=== PATIENT | female | born 1940 | race Caucasian/White ===

== ENCOUNTER 2018-09-15 10:53 | Emergency (ER) | payer MEDICARE, MEDICAID, SELFPAY ==
[2018-09-15 10:54] VITALS: BP 181/99; PULSE 72; RESP 16; TEMP 36.4; O2SAT 100; BMI 29.7
[2018-09-15 11:06] VITALS: O2SAT 100
--- NOTE | 2018-09-15 11:14 | CT_ITS ---
STUDY: CT BRAIN WITHOUT CONTRAST REASON FOR EXAM: Female, 78 years old. Dizziness. RADIATION DOSAGE (If Supplied By Facility): CTDIvol = ( 44.99 ) mGy, DLP = ( 829.85 ) mGycm TECHNIQUE: Transaxial CT imaging of the brain was performed without administration of intravenous contrast material. Individualized dose optimization techniques were used for this CT. COMPARISON: None. FINDINGS: Normal soft tissue structures. Normal calvarium. Normal size ventricles and extra-axial spaces for the patient's age. There are minimal areas of decreased attenuation within the white matter tracts of the supratentorial brain, consistent with microvascular disease changes. Normal basal ganglia and thalami. Normal brainstem. Normal cerebellum. There is no intracranial hemorrhage. There are no findings of an acute ischemic infarction. Normal visualized paranasal sinuses. There is mild decreased aeration of the left mastoid air cells probably chronic. CT/Brain/Head without Contrast IMPRESSION: No active pulmonary disease. Mild left mastoid air cell disease. Electronically Signed: Justin Ferrara MD at 11:51 EST Tel , Service support ,
--- NOTE | 2018-09-15 11:16 | ED.DCSUM_ITS ---
- ER Visit Summary Date of Service: 09/15/18 Chief Complaint: [] Dizziness in protestant today History of Present Illness: The patient is a 78 F [] history of hypertension really no other past history reports she woke feeling fine went to protestant and she sat about to go down to participate in activity she felt the sense of spinning sensation she then sat down this all basically shortly resolved the paramedics were called and her blood pressure was 180/90 he normally runs about 120/80, at no time that she had headache change in vision no difficulty with speaking no cognitive dysfunction, no numbness weakness or paresthesias chest pain abdominal pain she is back to baseline now, she has no history of OH PE DVT stroke or seizure Physical Examination: [] 180/90 afebrile General, no distress resting comfortably HEENT is generally unremarkable The neck is supple no adenopathy Cardiovascular, regular rate and rhythm Lungs, clear bilateral Abdomen, soft nontender Extremities, no clubbing cyanosis or edema Neurologic, awake alert answering questions appropriately moving all 4 extrem ities Test Results: [] Emergency Department Course and Treatment: [] Comfortably in the bed blood pressure as above she has no complaints she did take her medicines today given her complaints all the above screening labs are obtained Patient's blood pressure is 105/80 she has no complaints in fact she was asking the staff to be discharged that she was feeling fine want to go home her labs head CT are all unremarkable I spoke with her and her daughter discussed all the above with the long differential again she does not wish to be admitted she wants to go home she is feeling fine, she assures me that basically she has been doing well at home her blood pressure has not been an issue I have asked her to continue her medications avoid salt baby her body follow-up with her doctors return for change in symptoms and she will do so Treatment Plan: [] Disposition: [] Home stable Impression: [] Transient dizziness resolved hypertension This note was generated with ensembli dictation software. It may contain incorrect words, spelling, and punctuation that were not noted in review of the chart prior to signing ED Disposition - Plan for ED Patient: Chief Complaint: Hypertension Referrals: Liz Hoover MD [Primary Care Provider] -
[2018-09-15 11:27] LABS: Absolute Lymphocyte Count 1.08 X10^3/ul (0.83-4.51); Absolute Neutrophil Count 3.6 X10^3/uL (2.0-7.7); Basophil# 0.01 X10^3/uL; Basophil% 0.2 % (0-1); Eosinophil# 0.07 X10^3/uL; Eosinophils% 1.3 % (0-5); Hematocrit 41.4 % (37-47); Hemoglobin 14.1 g/dl (12.0-15.0); Lymphocyte # 1.08 X10^3/ul (4.0); Lymphocyte % 20.7 % (19-41); Mean Corp Hgb Conc 34.1 g/gl (32-36); Mean Corpuscular Hgb 31.1 pg (27.0-32.0); Mean Corpuscular Volume 91.4 fL (81-99); Mean Platelet Vol. 9.6 fl (6.2-12.0); Monocyte% 9.6 % (0-10); Neutrophil # 3.56 X10^3/uL (2.7-7.7); POSITIVE COUNT NO; POSITIVE DIFFERENTIAL NO; POSITIVE MORPHOLOGY NO; Platelet Count 172 K/mm3 (150-450); RBC Distribution Width SD 42.6 fl (35.1-43.9); Red Blood Count 4.53 M/mm3 (4.2-5.4); White Blood Count 5.2 K/mm3 (4.4-11.0)
--- NOTE | 2018-09-15 11:30 | RAD_ITS ---
STUDY: X-RAY CHEST REASON FOR EXAM: Female, 78 years old. Chest pain. TECHNIQUE: Single AP portable view of the chest. COMPARISON: Prior comparison studies are not available for review at this time. FINDINGS: The lungs are clear and expanded. There is no demonstrated pleural abnormality. The heart is within normal limits in size for there are calcified left hilar nodes. Normal visualized pulmonary arteries. There is atherosclerotic tortuosity of the aortic arch and descending thoracic aorta. The thoracic spine is obscured. Normal visualized ribs, clavicles, and shoulders. There is no demonstrated abnormality of the visualized soft tissue structures of the upper abdomen. RAD/Chest 1 View (Portable) IMPRESSION: No active pulmonary disease. Electronically Signed: Justin Ferrara MD at 12:07 EST Tel , Service support ,
[2018-09-15] MEDS: Clonidine HCl 0.1 MG, Clonidine HCl 0.2 MG 0.3 MG PO (11:45)
[2018-09-15 11:49] LABS: Anion Gap 8 (5-15); BUN 16 mg/dL (7-18); BUN/Creat Ratio 20.8 RATIO (10-20); Calcium,Total 9.5 mg/dL (8.5-10.1); Chloride 106 mmol/L (98-107); Creatinine, Serum 0.77 mg/dL (0.55-1.02); EST Glomerular Filtration Rate 77 mL/min (>60); Est Glom Filt Rate - Afr Amer 93 mL/min (>60); Estimated Creatinine Clearance 42.39 ml/min; Glucose 87 mg/dL (74-106); Potassium 3.9 mmol/L (3.5-5.1); Sodium Level 140 mmol/L (136-145)
[2018-09-15 11:58] LABS: Bacteria 0 SEEN /hpf (None Seen); Mucous, Urine 0 SEEN /hpf (<or=2+); White Blood Cells 0 SEEN /hpf (0-5)
[2018-09-15 11:59] LABS: Color, Urine Yellow (Yellow); Glucose, Dipstick Normal (Normal); Ketone-Dipstick Negative (Negative); Leukocyte Esterase-Dipstick 25 /ul (Negative); Nitrite-Dipstick Negative (Negative); Occult Blood-Urine Negative /ul (Negative); Protein-Dipstick Negative (Negative); Specific Gravity, Urine 1.015 (1.002-1.030); Urine Bilirubin Dipstick Negative (Negative); Urine Clarity Clear (Clear); Urine Urobilinogen Normal (Normal)
[2018-09-15 12:04] LABS: Red Blood Cells-Urine 0-5 SEEN /hpf (0-5); Squamous Epithelial Cells - UA 0-5 SEEN /hpf (5-10)
--- NOTE | 2018-09-15 14:27 | ED.DEP ---
ED Disposition - Plan for ED Patient: Chief Complaint: Hypertension Instructions: ED HTN Established, ED Vertigo Unspecified Referrals: Liz Hoover MD [Primary Care Provider] -
[2018-09-15 14:31] VITALS: BP 102/67; PULSE 51; RESP 16; O2SAT 96
== END 2018-09-15 14:36 | disposition home or self-care (01) ==
PROVIDERS: Emergency Provider Emergency Medicine; Family Provider Internal Medicine; PCP Internal Medicine
DX: R42 Dizziness and giddiness (principal); I10 Essential (primary) hypertension
CPT/HCPCS: 70450; 71045; 80048; 81001; 84484; 85025; 93005; 99285; A4216

== ENCOUNTER 2021-06-01 13:02 | Emergency (ER) | payer MEDICARE, SELFPAY ==
[2021-06-01 13:03] VITALS: BP 150/103; PULSE 90; RESP 18; TEMP 36.6; O2SAT 96; BMI 32.4
--- NOTE | 2021-06-01 13:45 | ED.VIS.FALL ---
HPI HPI - Fall History of Present Illness Chief Complaint: Fall Detail of Chief Complaint: Patient fell yesterday morning Informant: patient and family Occured/Mechanism Occurred: Yesterday Mechanism/Context: Yes same level fall Usually ambulates: Without assistance Pain/Injury Pain Location: back (Bruising and pain over the left lower ribs) Quality of Pain: Dull and Aching Current Severity: Mild Maximum Severity: Moderate Worsened by: Movement Relieved by: Remaining still Associated Symptoms Associated Symptoms: Negative for Parasthesias, Weakness, Loss of function, Inability to ambulate, Loss of consciousness and Amnesia Narrative Narrative: Patient is an elderly woman who presents after mechanical fall. This occurred yesterday morning while getting out of bed. She tripped over a fan striking the chair and then to the ground. She presents because of bruising and pain left flank area. She has not urinated since the incident. She does report pain with movement and breathing. She is not on an anticoagulant. She denies head trauma. She denies loss of conscious. She is not amnestic. She denies neck pain. She denies paresthesia, anesthesia or motor weakness. Tetanus Immunization: 5-10 years Prior similar symptoms: No Recent Illness/Hospitalization: No PFSH PFS Medical History (Updated 06/01/21 @ 16:[address] Christiano Wing MD) Coronary artery disease Dementia Hypertension Home Medications amlodipine 5 mg PO DAILY 08/05/16 [History Last Taken 06/21/17] hydrocodone-acetaminophen 1 tab PO Q6H PRN PRN 3 Days #10 tablet 06/01/21 [Rx Last Taken Unknown] Allergy/AdvReac Type Severity Reaction Status Date / Time No Known Allergies Allergy Verified 06/01/21 13:06 Social History (Updated 06/01/21 @ 13:[address] Christiano Wing MD) household members: none Smoking Status: Former smoker alcohol intake: current alcohol intake frequency: other substance use type: does not use ROS ROS ED Constitutional Constitutional ED: Denies chills, fever(s), subjective or sweats Eyes Eyes: Denies blurry vision, change in vision or diplopia ENT ENT ED: Denies ear pain, rhinorrhea or sore throat Cardiovascular Cardiovascular: Denies chest pain, orthopnea, palpitations or racing heartbeat Respiratory/Chest Respiratory/Chest: Denies cough, dyspnea, dyspnea on exertion, orthopnea or sputum Gastrointestinal Gastrointestinal: Denies abdominal pain, diarrhea, nausea or vomiting Genitourinary Genitourinary ED: Denies dysuria, hematuria or urinary frequency Musculoskeletal Musculoskeletal: Reports back pain; Denies arthralgias, myalgias or neck pain Integumentary Reports other Details: Bruising noted left flank area ; Denies rash Neurologic Neurologic: Denies headache(s) or weakness Hematologic/Lymphatic Hematologic/Lymphatic: Denies easy bleeding or easy bruising EXAM Physical Exam Const Vital Signs: 06/01/21 13:03 06/01/21 14:08 Temperature 97.9 F Temperature Source Temporal Pulse Rate 90 Respiratory Rate 18 Respiratory Effort Normal Blood Pressure 150/103 H Blood Pressure Mean 118 Pulse Ox 96 Oxygen Delivery Method Room Air Positive well nourished and well developed General Appearance ED: well developed and NAD HEENT Reports normocephalic and TM's clear HEENT Narrative: There is no septal deviation hematoma. atraumatic Tympanic Membrane ED: Yes TM's clear Eyes PERRL and EOMs intact bilaterally Eyes Narrative: There is no subconjunctival hemorrhage. General Eye ED: Negative for pale conjunctiva or scleral icterus Neck full ROM, no lymphadenopathy and supple General: Negative for tenderness Chest Wall inspection of chest normal Resp normal respiratory effort and clear to auscultation bilaterally Auscultation: diminished lung sounds Cardio regular rate, regular rhythm, S1 normal heart sound, S2 normal heart sound and no murmurs GI non-tender, non-distended and no masses Auscultation: normoactive bowel sounds Palpation: soft Back/Spine Negative for no CVA tenderness General Back: CVA tenderness left Cervical Spine: Negative for cervical spine tenderness Thoracic Spine / Upper Back: Negative for thoracic spinal tenderness Lumbar Spine / Lower Back: Negative for lumbar spinal tenderness Extremity normal to inspection and full ROM General Extremety ED: Yes normal exam except as noted; Negative for cyanosis General Extremity: normal exam except as noted; Negative for cyanosis Neuro oriented x3 and CN's II-XII intact bilaterally David Coma Scale: document GCS findings Spontaneous Obeys Commands Oriented 15 Sensorium / Orientation: alert Motor Exam: strength 5/5 throughout Psych mental status grossly normal and thought process normal Skin Skin Narrative: Bruising as previously described Lesions: no lesions Rashes: no rashes MDM MDM MDM Narrative Medical decision making narrative: X-ray was obtained to evaluate for pneumothorax and hemothorax. UA to assess for hematuria which would raise concern for renal injury. CBC to rule out anemia. She was medicated with Zofran and morphine for her discomfort Lab Data Attestation: I reviewed the patient's lab results. Lab results narrative: Patient did not give urine specimen. Patient did go. Urine was not bloody or dark in appearance; therefore, plan is to discharge to home. Labs: Laboratory Results - last 24 hr 06/01/21 14:00 WBC 5.2 RBC 4.48 Hgb 13.8 Hct 41.2 MCV 92.0 MCH 30.8 MCHC 33.5 RDW Std Deviation 42.3 RDW Coeff of Niurka 12.5 Plt Count 166 MPV 9.6 Radiography Diagnostic Testing: Radiology Impression Ribs w/Chest X-Ray 06/01/21 14:25 IMPRESSION: RIBS: Normal x-ray examination of the ribs. CHEST: Normal x-ray examination of the chest. Electronically Signed: Rigoberto June MD at 15:06 EDT , Service support , 4 view left rib detail reveals no evidence of pneumothorax, hemothorax or fractured ribs. Cardiac silhouette size normal. Mediastinum is unremarkable. Discharge Plan Triage Chief Complaint: Fall ED Provider: Christiano Wing Dx/Rx/DC Orders Clinical Impression: Bruised ribs, Fall with injury Instructions: ED Contusion, Rib Prescriptions: New hydrocodone-acetaminophen [hydrocodone-acetaminophen] 1 TABLET tablet 1 tab PO Q6H PRN PRN (Reason: Pain) 3 Days Qty: 10 RF: 0 No Action amlodipine 2.5 MG tablet 5 mg PO DAILY RF: 0 Primary Care Provider: Liz Hoover Referrals: Liz Hoover MD [Primary Care Provider] - 1 Week if not improving Disposition Disposition: Home, Self Care
[2021-06-01] MEDS: Morphine 4 MG/ML Syringe IV (13:58)
[2021-06-01] MEDS: Ondansetron 4 MG/2 ML Vial IV (13:58)
[2021-06-01 14:12] LABS: Hematocrit 41.2 % (37-47); Hemoglobin 13.8 g/dL (12.0-15.0); Mean Corp Hgb Conc 33.5 g/dL (32-36); Mean Corpuscular Hgb 30.8 pg (27.0-32.0); Mean Platelet Vol. 9.6 fl (6.2-12.0); Platelet Count 166 K/mm3 (150-450); RBC Distribution Width CV 12.5 % (11.6-14.6); RBC Distribution Width SD 42.3 fl (35.1-43.9); Red Blood Count 4.48 M/mm3 (4.2-5.4); White Blood Count 5.2 K/mm3 (4.4-11.0)
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
[2021-06-01 17:21] VITALS: BP 140/78; PULSE 78; RESP 18; O2SAT 96
== END 2021-06-01 17:23 | disposition home or self-care (01) ==
PROVIDERS: Emergency Provider Emergency Medicine; PCP Internal Medicine
DX: S20.219A Contusion of unspecified front wall of thorax, initial encounter (principal); W18.09XA Striking against other object with subsequent fall, initial encounter; Y93.9 Activity, unspecified; Y92.003 Bedroom of unspecified non-institutional (private) residence as the place of occurrence of the external cause; Y99.9 Unspecified external cause status; I25.10 Atherosclerotic heart disease of native coronary artery without angina pectoris; I10 Essential (primary) hypertension; F03.90 Unspecified dementia, unspecified severity, without behavioral disturbance, psychotic disturbance, mood disturbance, and anxiety; Z87.891 Personal history of nicotine dependence
CPT/HCPCS: 71101; 85027; 96374; 96375; 99284; J2405

== ENCOUNTER 2022-08-25 16:00 | Emergency (ER) | payer MEDICARE, MEDICAID, SELFPAY ==
[2022-08-25] VITALS (7 sets, daily range): BP systolic 118–139; BP diastolic 81–112; PULSE 62–86; RESP 16; TEMP 36–36.3; O2SAT 96–100; BMI 25.7
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
--- NOTE | 2022-08-25 16:34 | CT_ITS ---
STUDY: CT BRAIN WITHOUT CONTRAST REASON FOR EXAM: Female, 82 years old. Change in mental status. RADIATION DOSAGE (If Supplied By Facility): CTDIvol = ( 44.99 ) mGy, DLP = ( 829.85 ) mGycm TECHNIQUE: Transaxial CT imaging of the brain was performed without administration of intravenous contrast material. Individualized dose optimization techniques were used for this CT. COMPARISON: June 16, 2018. FINDINGS: Normal soft tissue structures. Normal calvarium. There is mild cerebral atrophy with widening of the extra-axial spaces and ventricular dilatation. There are areas of decreased attenuation within the white matter tracts of the supratentorial brain, consistent with microvascular disease changes. Normal basal ganglia and thalami. Normal brainstem. Normal cerebellum. There is no intracranial hemorrhage. There are no findings of an acute ischemic infarction. Normal visualized paranasal sinuses. Chronic fluid density in the inferior left mastoid sinus. CT/Brain/Head without Contrast IMPRESSION: Chronic involutional changes without evidence of acute intracranial or calvarial abnormality. There is no major interval change. Electronically Signed: Ponce Jackson DO at 17:48 EST Reading Location ID and State: [address] [place] [address] Tel [phone], Service support ,
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
[2022-08-25 17:00] LABS: Absolute Lymphocyte Count 0.81 X10^3/uL (0.83-4.51); Absolute Neutrophil Count 4.6 X10^3/uL (2.0-7.7); Basophil# 0.01 X10^3/uL; Basophil% 0.2 % (0-1); Eosinophil# 0.07 X10^3/uL; Eosinophils% 1.1 % (0-5); Hemoglobin 12.3 g/dL (12.0-15.0); Lymphocyte # 0.81 X10^3/ul (0.83-4.51); Lymphocyte % 13.3 % (19-41); Mean Corp Hgb Conc 33.2 g/dL (32-36); Mean Corpuscular Hgb 30.9 pg (27.0-32.0); Mean Platelet Vol. 10.3 fl (6.2-12.0); Monocyte# 0.59 X10^3/uL; Monocyte% 9.7 % (0-10); NRBC Flagged by Analyzer 0 % (0-5); Neutrophil # 4.61 X10^3/uL (2.7-7.7); Neutrophil % 75.4 % (47-70); Platelet Count 175 K/mm3 (150-450); RBC Distribution Width CV 12.8 % (11.6-14.6); Red Blood Count 3.98 M/mm3 (4.2-5.4); White Blood Count 6.1 K/mm3 (4.4-11.0)
[2022-08-25 17:17] LABS: Anion Gap 3 (5-15); BUN 18 mg/dL (7-18); BUN/Creat Ratio 20.9 RATIO (10-20); Calcium,Total 9.7 mg/dL (8.5-10.1); Chloride 110 mmol/L (98-107); Creatinine, Serum 0.86 mg/dL (0.55-1.02); EST Glomerular Filtration Rate 67 mL/min (>60); Est Glom Filt Rate - Afr Amer 81 mL/min (>60); Glucose 92 mg/dL (74-106); Potassium 4.1 mmol/L (3.5-5.1); Sodium Level 142 mmol/L (136-145)
[2022-08-25 17:26] LABS: Alcohol, Blood (Medical)-Serum < 3.0 mg/dL
[2022-08-25] MEDS: Ziprasidone IM 20 MG/ML VIAL 10 MG IM (17:57)
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
[2022-08-25 19:29] LABS: Amphetamine Urine VISTA NEGATIVE (<1000 ng/mL); Barbiturate Urine VISTA NEGATIVE (< 200 ng/mL); Benzodiazepine Urine VISTA NEGATIVE (< 200 ng/mL); Cocaine Urine VISTA NEGATIVE (< 300 ng/mL); Ecstacy Urine VISTA NEGATIVE (< 500 ng/mL); Methadone Urine VISTA NEGATIVE (< 300 ng/mL); PCP Urine VISTA NEGATIVE (< 25 ng/mL); THC Urine VISTA NEGATIVE (< 50 ng/mL); Vista UDS pH Range 6
[2022-08-25] MEDS: LORazepam 2 MG/ML Syringe 1 MG IM (20:06)
--- NOTE | 2022-08-25 20:36 | CM.ED ---
Addendum entered by Whitney Reeves 08/25/22 21:51: EKG faxed to [facility]. SW updated son that patient is going to [facility]. RN was asked to call patient's son when patient leaves per son's request. Plan: [facility] Whitney REYNOSOHUMBERTO Original Note: EREN JASON called [facility] to inquire on the referral. Staff at [facility] inquired as to how patient was doing currently and how long patient was off soft restraints. Per charge auditor oleg patient was off soft restraints for 2 hours. [facility] also inquired if patient could return to SNF. EREN called nurse Yulissa at [facility] and she voiced that patient could return after psychiatric treatment. EREN called Aida at [facility]. They are reviewing the referral currently and will call this check writer salesperson back. Aida called this check writer salesperson back and they will fax the SNF agreement to this check writer salesperson and this check writer salesperson will fax it to A[facility]. EREN called [facility] at [facility] and spoke to Janee. She spoke to LISA Hughes who said that patient would be able to return after receiving treatment. The direct line to [facility] is [phone] and the fax number to [facility] is [phone]. EREN called [facility] and advised that patient could return to [facility] at discharge from [facility]. EREN requested that the social media campaign manager call [facility] to get verbal that patient could return to [facility] at discharge. REEN called [facility] and was advised that patient can return to [facility] at discharge. [place] staff said that they want a letter stating patient can return to [facility]. EREN received call from [facility]. They can accept patient. Accepting provider is Fam. Going to [facility] . RN to RN is [phone]. Patient needs to be out of soft restraints for 4 hours prior to leaving [place]. Patient is going to room 309B. EREN called [facility] and advised patient has secured placement. EREN faxed pink slip and covid form to [facility]. Plan: [facility] Whitney REYNOSOHUMBERTO
--- NOTE | 2022-08-25 21:37 | EKG12_ITS ---
Test Reason : [facility] Blood Pressure : / mmHG Vent. Rate : 070 BPM Atrial Rate : 070 BPM P-R Int : 184 ms QRS Dur : 128 ms QT Int : 412 ms P-R-T Axes : 077 083 043 degrees QTc Int : 444 ms Normal sinus rhythm Right bundle branch block Abnormal ECG Confirmed by UZMA ZAPATA, NADEGE ([id number]), editorial assistant NARCISO CASTREJON ([id number]) on 08/29/2022 12:12:16 PM Referred By: TONI Confirmed By:NADEGE GUSMAN MD
--- NOTE | 2022-08-25 23:57 | ED.RN ---
ATTEMPTED TO CALL REPORT TO [facility]. THEY STATED THEY WERE UNABLE TO TAKE THE REPORT BUT WOULD CALL BACK.
--- NOTE | 2022-08-26 00:09 | NURSING ---
Addendum entered by Humaira Batista 08/26/22 02:44: PHYSICIANS CALLED AROUND [id number] AND GAVE A NEW ETA OF APPROX AN HR. Original Note: ACCEPTED AT [facility] AND GIVEN BED ASSIGNMENT. TRANSPORT WAS CALLED AND THEIR ETA IS 9AM 08/26/22.
[2022-08-26 01:31] VITALS: O2SAT 96
[2022-08-26] MEDS: Ziprasidone IM 20 MG/ML VIAL IM (01:52)
--- NOTE | 2022-08-26 02:55 | NURSING ---
Called and nurse at [facility] is aware we medicated again about an hour ago and new calose kimmy is now 0330 here and there around 0500. She just wants called when patient leaves the facility.
[2022-08-26 02:57] VITALS: O2SAT 97
[2022-08-26 03:55] VITALS: O2SAT 97
== END 2022-08-26 03:59 ==
PROVIDERS: Emergency Provider Emergency Medicine; PCP Internal Medicine; Visit Provider Emergency Medicine
DX: F03.918 Unspecified dementia, unspecified severity, with other behavioral disturbance (principal); I25.10 Atherosclerotic heart disease of native coronary artery without angina pectoris; I10 Essential (primary) hypertension; E78.5 Hyperlipidemia, unspecified; Z20.822 Contact with and (suspected) exposure to COVID-19; Z87.891 Personal history of nicotine dependence; R45.6 Violent behavior; Z79.899 Other long term (current) drug therapy
CPT/HCPCS: 70450; 80048; 80307; 82077; 85025; 87811; 93005; 96372; 99285; A4216; J3486

== ENCOUNTER → 2022-09-14 | Outpatient (REF) | payer MEDICARE, MEDICAID, SELFPAY ==
[2022-09-14 09:06] LABS: Absolute Lymphocyte Count 0.72 X10^3/uL (0.83-4.51); Absolute Neutrophil Count 5.5 X10^3/uL (2.0-7.7); Basophil# 0.01 X10^3/uL; Basophil% 0.1 % (0-1); Eosinophil# 0.09 X10^3/uL; Eosinophils% 1.3 % (0-5); Hematocrit 33.9 % (37-47); Hemoglobin 11.4 g/dL (12.0-15.0); Lymphocyte # 0.72 X10^3/ul (0.83-4.51); Lymphocyte % 10.3 % (19-41); Mean Corp Hgb Conc 33.6 g/dL (32-36); Mean Corpuscular Hgb 31.4 pg (27.0-32.0); Mean Corpuscular Volume 93.4 fL (81-99); Mean Platelet Vol. 10.5 fl (6.2-12.0); Monocyte# 0.65 X10^3/uL; Monocyte% 9.3 % (0-10); NRBC Flagged by Analyzer 0 % (0-5); Neutrophil % 78.7 % (47-70); Platelet Count 179 K/mm3 (150-450); RBC Distribution Width SD 44.6 fl (35.1-43.9); Red Blood Count 3.63 M/mm3 (4.2-5.4)
[2022-09-14 09:18] LABS: ALB/GLOB Ratio 0.8 RATIO (0.9-2.4); AST(SGOT) 54 U/L (15-37); Alanine Aminotransfer ALT/SGPT 62 U/L (13-56); Albumin, Serum 2.7 g/dL (3.2-5.0); Alkaline Phosphatase 65 U/L (45-117); Anion Gap 3 (5-15); BUN 12 mg/dL (7-18); Calcium,Total 8.8 mg/dL (8.5-10.1); Chloride 105 mmol/L (98-107); Creatinine, Serum 0.48 mg/dL (0.55-1.02); EST Glomerular Filtration Rate 132 mL/min (>60); Est Glom Filt Rate - Afr Amer 159 mL/min (>60); Globulin 3.2 g/dL (2.2-4.2); Glucose 93 mg/dL (74-106); Potassium 3.9 mmol/L (3.5-5.1); Protein, Total 5.9 g/dL (6.4-8.2); Sodium Level 137 mmol/L (136-145)
== END ==
LOC: OLS.WHLCAR 07:30
PROVIDERS: PCP Internal Medicine; Visit Provider Internal Medicine
DX: F03.911 Unspecified dementia, unspecified severity, with agitation (principal); I10 Essential (primary) hypertension; R41.89 Other symptoms and signs involving cognitive functions and awareness; M62.81 Muscle weakness (generalized); R26.2 Difficulty in walking, not elsewhere classified; R27.8 Other lack of coordination
CPT/HCPCS: 36415; 80053; 85025

== ENCOUNTER → 2022-10-06 | Outpatient (REF) | payer MEDICARE, MEDICAID, SELFPAY ==
[2022-10-06 09:12] LABS: Absolute Neutrophil Count 4.3 X10^3/uL (2.0-7.7); Basophil# 0.02 X10^3/uL; Basophil% 0.3 % (0-1); Eosinophil# 0.12 X10^3/uL; Hematocrit 35.3 % (37-47); Hemoglobin 11.2 g/dL (12.0-15.0); Lymphocyte % 14.9 % (19-41); Mean Corp Hgb Conc 31.7 g/dL (32-36); Mean Corpuscular Hgb 30.4 pg (27.0-32.0); Mean Corpuscular Volume 95.9 fL (81-99); Mean Platelet Vol. 10.5 fl (6.2-12.0); Monocyte# 0.66 X10^3/uL; Monocyte% 10.9 % (0-10); NRBC Flagged by Analyzer 0 % (0-5); Neutrophil # 4.33 X10^3/uL (2.7-7.7); Neutrophil % 71.6 % (47-70); Platelet Count 225 K/mm3 (150-450); RBC Distribution Width CV 14.4 % (11.6-14.6); RBC Distribution Width SD 50.4 fl (35.1-43.9); Red Blood Count 3.68 M/mm3 (4.2-5.4); White Blood Count 6.1 K/mm3 (4.4-11.0)
[2022-10-06 09:32] LABS: ALB/GLOB Ratio 0.9 RATIO (0.9-2.4); AST(SGOT) 33 U/L (15-37); Alanine Aminotransfer ALT/SGPT 41 U/L (13-56); Albumin, Serum 3.2 g/dL (3.2-5.0); Alkaline Phosphatase 84 U/L (45-117); Anion Gap 7 (5-15); BUN 22 mg/dL (7-18); BUN/Creat Ratio 29.1 RATIO (10-20); Calcium,Total 9.2 mg/dL (8.5-10.1); Chloride 108 mmol/L (98-107); Creatinine, Serum 0.76 mg/dL (0.55-1.02); EST Glomerular Filtration Rate 78 mL/min (>60); Est Glom Filt Rate - Afr Amer 95 mL/min (>60); Globulin 3.7 g/dL (2.2-4.2); Glucose 95 mg/dL (74-106); Potassium 4.4 mmol/L (3.5-5.1); Protein, Total 6.9 g/dL (6.4-8.2); Sodium Level 141 mmol/L (136-145); Thyroid Stim Hormone (TSH) 1.58 uIU/mL (0.358-3.74)
== END ==
LOC: OLS.WHLCAR 05:00
PROVIDERS: PCP Internal Medicine; Visit Provider Internal Medicine
DX: G93.32 Myalgic encephalomyelitis/chronic fatigue syndrome (principal); I10 Essential (primary) hypertension; R41.89 Other symptoms and signs involving cognitive functions and awareness; M62.81 Muscle weakness (generalized); R26.2 Difficulty in walking, not elsewhere classified; R27.8 Other lack of coordination
CPT/HCPCS: 36415; 80053; 84443; 85025

== ENCOUNTER → 2022-10-20 | Outpatient (REF) | payer MEDICARE, MEDICAID, SELFPAY ==
[2022-10-20 09:05] LABS: Absolute Lymphocyte Count 1.43 X10^3/uL (0.83-4.51); Absolute Neutrophil Count 4.8 X10^3/uL (2.0-7.7); Basophil# 0.01 X10^3/uL; Basophil% 0.1 % (0-1); Eosinophil# 0.16 X10^3/uL; Eosinophils% 2.2 % (0-5); Hematocrit 40.1 % (37-47); Hemoglobin 12.6 g/dL (12.0-15.0); Lymphocyte # 1.43 X10^3/ul (0.83-4.51); Lymphocyte % 20.1 % (19-41); Mean Corp Hgb Conc 31.4 g/dL (32-36); Mean Corpuscular Hgb 30.2 pg (27.0-32.0); Mean Corpuscular Volume 96.2 fL (81-99); Mean Platelet Vol. 10.1 fl (6.2-12.0); Monocyte# 0.69 X10^3/uL; Monocyte% 9.7 % (0-10); NRBC Flagged by Analyzer 0 % (0-5); Neutrophil % 67.5 % (47-70); Platelet Count 295 K/mm3 (150-450); RBC Distribution Width CV 14.1 % (11.6-14.6); RBC Distribution Width SD 50.3 fl (35.1-43.9); Red Blood Count 4.17 M/mm3 (4.2-5.4); White Blood Count 7.1 K/mm3 (4.4-11.0)
[2022-10-20 09:24] LABS: Anion Gap 7 (5-15); BUN 16 mg/dL (7-18); BUN/Creat Ratio 22.3 RATIO (10-20); Calcium,Total 9.7 mg/dL (8.5-10.1); Chloride 107 mmol/L (98-107); Creatinine, Serum 0.72 mg/dL (0.55-1.02); EST Glomerular Filtration Rate 83 mL/min (>60); Est Glom Filt Rate - Afr Amer 100 mL/min (>60); Glucose 93 mg/dL (74-106); Potassium 4.4 mmol/L (3.5-5.1); Sodium Level 141 mmol/L (136-145)
== END ==
LOC: OLS.WHLCAR 06:50
PROVIDERS: PCP Internal Medicine; Visit Provider Internal Medicine
DX: G93.32 Myalgic encephalomyelitis/chronic fatigue syndrome (principal); I10 Essential (primary) hypertension; R41.89 Other symptoms and signs involving cognitive functions and awareness; M62.81 Muscle weakness (generalized); R26.2 Difficulty in walking, not elsewhere classified; R27.8 Other lack of coordination
CPT/HCPCS: 36415; 80048; 85025

== ENCOUNTER → 2022-11-29 | Outpatient (REF) | payer MEDICARE, MEDICAID, SELFPAY ==
[2022-11-29 09:26] LABS: Absolute Lymphocyte Count 1.03 X10^3/uL (0.83-4.51); Absolute Neutrophil Count 2.9 X10^3/uL (2.0-7.7); Basophil# 0.01 X10^3/uL; Basophil% 0.2 % (0-1); Eosinophils% 4.3 % (0-5); Hematocrit 34.5 % (37-47); Hemoglobin 10.6 g/dL (12.0-15.0); Lymphocyte # 1.03 X10^3/ul (0.83-4.51); Mean Corp Hgb Conc 30.7 g/dL (32-36); Mean Corpuscular Hgb 30.1 pg (27.0-32.0); Mean Platelet Vol. 9.7 fl (6.2-12.0); Monocyte# 0.52 X10^3/uL; Monocyte% 11.1 % (0-10); NRBC Flagged by Analyzer 0 % (0-5); Neutrophil # 2.91 X10^3/uL (2.7-7.7); Neutrophil % 62.2 % (47-70); Platelet Count 214 K/mm3 (150-450); RBC Distribution Width CV 14.2 % (11.6-14.6); RBC Distribution Width SD 50.7 fl (35.1-43.9); Red Blood Count 3.52 M/mm3 (4.2-5.4); White Blood Count 4.7 K/mm3 (4.4-11.0)
[2022-11-29 10:13] LABS: ALB/GLOB Ratio 0.8 RATIO (0.9-2.4); AST(SGOT) 34 U/L (15-37); Alanine Aminotransfer ALT/SGPT 31 U/L (13-56); Albumin, Serum 2.9 g/dL (3.2-5.0); Alkaline Phosphatase 81 U/L (45-117); Anion Gap 9 (5-15); BUN 19 mg/dL (7-18); BUN/Creat Ratio 26.9 RATIO (10-20); Calcium,Total 9.4 mg/dL (8.5-10.1); Chloride 110 mmol/L (98-107); Creatinine, Serum 0.71 mg/dL (0.55-1.02); EST Glomerular Filtration Rate 84 mL/min (>60); Est Glom Filt Rate - Afr Amer 102 mL/min (>60); Globulin 3.7 g/dL (2.2-4.2); Glucose 92 mg/dL (74-106); Potassium 4.2 mmol/L (3.5-5.1); Protein, Total 6.6 g/dL (6.4-8.2); Sodium Level 142 mmol/L (136-145)
== END ==
LOC: OLS.WHLCAR 05:40
PROVIDERS: PCP Internal Medicine; Visit Provider Internal Medicine
DX: R48.8 Other symbolic dysfunctions (principal); Z79.899 Other long term (current) drug therapy
CPT/HCPCS: 36415; 80053; 85025

== ENCOUNTER → 2022-12-12 | Outpatient (REF) | payer MEDICARE, MEDICAID, SELFPAY ==
[2022-12-12 08:52] LABS: Absolute Lymphocyte Count 1.86 X10^3/uL (0.83-4.51); Absolute Neutrophil Count 4.1 X10^3/uL (2.0-7.7); Basophil# 0.01 X10^3/uL; Basophil% 0.1 % (0-1); Eosinophil# 0.25 X10^3/uL; Eosinophils% 3.6 % (0-5); Hematocrit 40.2 % (37-47); Hemoglobin 12.3 g/dL (12.0-15.0); Lymphocyte # 1.86 X10^3/ul (0.83-4.51); Lymphocyte % 26.5 % (19-41); Mean Corp Hgb Conc 30.6 g/dL (32-36); Mean Corpuscular Hgb 29.9 pg (27.0-32.0); Mean Corpuscular Volume 97.6 fL (81-99); Monocyte# 0.81 X10^3/uL; Monocyte% 11.6 % (0-10); NRBC Flagged by Analyzer 0 % (0-5); Neutrophil # 4.07 X10^3/uL (2.7-7.7); Neutrophil % 58.1 % (47-70); Platelet Count 263 K/mm3 (150-450); RBC Distribution Width CV 13.8 % (11.6-14.6); RBC Distribution Width SD 50.1 fl (35.1-43.9); Red Blood Count 4.12 M/mm3 (4.2-5.4)
[2022-12-12 09:02] LABS: Anion Gap 6 (5-15); BUN 24 mg/dL (7-18); BUN/Creat Ratio 35.6 RATIO (10-20); Calcium,Total 9.8 mg/dL (8.5-10.1); Chloride 105 mmol/L (98-107); Creatinine, Serum 0.68 mg/dL (0.55-1.02); EST Glomerular Filtration Rate 89 mL/min (>60); Est Glom Filt Rate - Afr Amer 108 mL/min (>60); Glucose 88 mg/dL (74-106); Potassium 4.4 mmol/L (3.5-5.1); Sodium Level 140 mmol/L (136-145)
== END ==
LOC: OLS.WHLCAR 05:00
PROVIDERS: PCP Internal Medicine; Visit Provider Internal Medicine
DX: G93.32 Myalgic encephalomyelitis/chronic fatigue syndrome (principal)
CPT/HCPCS: 36415; 80048; 85025

== ENCOUNTER → 2023-01-29 | Outpatient (REF) | payer MEDICARE, MEDICAID, SELFPAY ==
[2023-01-29 10:14] LABS: Valproic Acid (Depakene) Level 34 ug/mL (50-100)
== END ==
LOC: OLS.WHLCAR 04:00
PROVIDERS: PCP Internal Medicine; Referring Provider Internal Medicine; Visit Provider Internal Medicine
DX: F03.92 Unspecified dementia, unspecified severity, with psychotic disturbance (principal); G30.9 Alzheimer's disease, unspecified; F33.9 Major depressive disorder, recurrent, unspecified; F41.9 Anxiety disorder, unspecified; Z79.899 Other long term (current) drug therapy
CPT/HCPCS: 36415; 80164

== ENCOUNTER → 2023-02-06 | Outpatient (REF) | payer MEDICARE, MEDICAID, SELFPAY ==
[2023-02-06 07:04] LABS: Absolute Lymphocyte Count 0.95 X10^3/uL (0.83-4.51); Absolute Neutrophil Count 4.1 X10^3/uL (2.0-7.7); Basophil# 0.02 X10^3/uL; Basophil% 0.3 % (0-1); Eosinophil# 0.12 X10^3/uL; Hematocrit 39.7 % (37-47); Hemoglobin 12.1 g/dL (12.0-15.0); Lymphocyte # 0.95 X10^3/ul (0.83-4.51); Lymphocyte % 15.9 % (19-41); Mean Corp Hgb Conc 30.5 g/dL (32-36); Mean Corpuscular Hgb 29.2 pg (27.0-32.0); Mean Corpuscular Volume 95.7 fL (81-99); Monocyte# 0.82 X10^3/uL; Monocyte% 13.7 % (0-10); NRBC Flagged by Analyzer 0 % (0-5); Neutrophil # 4.05 X10^3/uL (2.7-7.7); Neutrophil % 67.8 % (47-70); Platelet Count 200 K/mm3 (150-450); RBC Distribution Width CV 14.2 % (11.6-14.6); RBC Distribution Width SD 49.8 fl (35.1-43.9); Red Blood Count 4.15 M/mm3 (4.2-5.4)
[2023-02-06 07:37] LABS: Anion Gap 6 (5-15); BUN 24 mg/dL (7-18); BUN/Creat Ratio 35.5 RATIO (10-20); Calcium,Total 9.2 mg/dL (8.5-10.1); Chloride 106 mmol/L (98-107); Creatinine, Serum 0.68 mg/dL (0.55-1.02); EST Glomerular Filtration Rate 89 mL/min (>60); Est Glom Filt Rate - Afr Amer 107 mL/min (>60); Glucose 91 mg/dL (74-106); Potassium 4.1 mmol/L (3.5-5.1); Sodium Level 140 mmol/L (136-145)
== END ==
LOC: OLS.WHLCAR 05:00
PROVIDERS: PCP Internal Medicine; Visit Provider Internal Medicine
DX: G93.32 Myalgic encephalomyelitis/chronic fatigue syndrome (principal)
CPT/HCPCS: 36415; 80048; 85025

== ENCOUNTER 2023-03-04 07:54 | Emergency (ER) | payer MEDICARE, MEDICAID, SELFPAY ==
[2023-03-04 07:55] VITALS: BP 119/80; PULSE 89; RESP 18; TEMP 37.4; O2SAT 91; BMI 30.4
--- NOTE | 2023-03-04 08:34 | EKG12_ITS ---
Test Reason : [facility] Blood Pressure : / mmHG Vent. Rate : 068 BPM Atrial Rate : 068 BPM P-R Int : 176 ms QRS Dur : 124 ms QT Int : 412 ms P-R-T Axes : 074 082 041 degrees QTc Int : 438 ms Normal sinus rhythm Right bundle branch block Abnormal ECG Confirmed by DANNI ZAPATA, FATOU ([id number]), development editor NARCISO CASTREJON ([id number]) on 03/06/2023 7:47:12 AM Referred By: Confirmed By:LISA RAZO MD
--- NOTE | 2023-03-04 08:35 | ED.VIS.LOWEX ---
HPI History of Present Illness HPI Narrative: 82-year-old female from local [facility] with history of dementia and hypertension sent in for bilateral lower extremity swelling and redness on the left leg. Patient herself is unable to give any history due to her dementia. She is awake her eyes are open but she really does not answer questions. Repeat exam at 11:25 AM unchanged. Patient is resting comfortably in bed. No changes the left leg is still erythematous consistent with cellulitis. I spoke to the [facility] facility. She had cellulitis previously. They normally treat her with oral antibiotics at their facility. I will give her a dose of IV Unasyn here. She will be sent back to the facility with a prescription for Keflex 500 4 times daily. They assured me they can get that filled. She will be followed up by their medical staff physician in the next day or so. And if the swelling is not improving they can obtain a noninvasive study of the lower extremity to rule out DVT even though clinically this time I think it is a cellulitis. Chief Complaint: Edema Informant: patient Occured/Mechanism Mechanism/Context: No injury and No blunt trauma Onset/Context/Timing Onset: Days Context: Gradual Onset Timing: Continuous Current Severity: Mild Maximum Severity: Mild Narrative Narrative: 82-year-old demented patient from a local [facility] facility sent in for bilateral lower extremity swelling and left leg redness. Patient is unable to give any history due to her dementia. Prior similar symptoms: No Recent Illness/Hospitalization: No PFSH PFS Medical History Coronary artery disease Dementia Depression HLD (hyperlipidemia) Hypertension Home Medications amlodipine 10 mg tablet 10 mg PO DAILY 08/25/22 [History Last Taken Unknown] multivitamin 1 tab PO DAILY 08/25/22 [History Last Taken Unknown] lorazepam 0.5 mg tablet 0.5 mg PO Q6H PRN anxiety #28 tabs 09/08/22 [Rx Last Taken Unknown] cephalexin 500 mg capsule 500 mg PO Q6 10 days #40 CAPSULES 03/04/23 [Rx Last Taken Unknown] Allergy/AdvReac Type Severity Reaction Status Date / Time No Known Allergies Allergy Verified 08/25/22 16:01 Social History household members: none Smoking Status: Former smoker alcohol intake: current alcohol intake frequency: other substance use type: does not use ROS ROS ED ROS Narrative Unable to obtain due to the patient's mental status. Review of Systems ROS Unobtainable: due to mental status EXAM Physical Exam Narrative Exam Narrative: 82-year-old female initial temperature is nine 9.3. Pulse ox 91% on room air borderline hypoxia. Initial blood pressure 119/80 when I entered the room she is 91/60 that will be rechecked. H EENT exam unremarkable atraumatic. Pupils round react to light. Moist membranes. Neck nontender JVD. Lungs clear to auscultation bilaterally. Heart regular rhythm rate about 94-6 systolic ejection murmur. Abdomen soft nontender normal bowel sounds no peritoneal signs. Nontender nondistended. Moves all 4 extremities. 1+ pitting edema both lower extremities little significant redness on the left lower extremity. Not specifically tender or warm to the touch. This may be secondary cellulitis it could also be chronic venous stasis changes. But is a significant difference between the left leg redness and the coloration of the right. Neurologically she is awake. Her eyes are open. She follows commands. She is demented and is confused. Const Vital Signs: 03/04/23 07:55 03/04/23 08:42 03/04/23 08:42 Temperature 99.3 F H Temperature Source Temporal Pulse Rate 89 Respiratory Rate 18 Blood Pressure 119/80 133/62 H Blood Pressure Mean 93 85 Pulse Ox 91 Oxygen Delivery Method Room Air Room Air 03/04/23 10:53 Temperature Temperature Source Pulse Rate 65 Respiratory Rate 15 Blood Pressure 103/73 Blood Pressure Mean 83 Pulse Ox Oxygen Delivery Method Positive well nourished and well developed; Negative for cachectic, contractures or unkempt General Appearance ED: well developed and NAD; Negative for unkempt, cachectic or contractures Nutritional Appearance: Negative for cachectic HEENT Reports moist mucous membranes normocephalic and atraumatic; Negative for trauma or tenderness Eyes PERRL General Eye ED: Negative for other Neck full ROM and supple Thyroid: Negative for tender Lymph Lymphatic: Negative for other Chest Wall inspection of chest normal and palpation of chest normal Resp normal respiratory effort, no retractions and clear to auscultation bilaterally Effort and Inspection: Negative for pain with movement Auscultation: Negative for rales, rhonchi or wheezes Cardio regular rate, regular rhythm, S1 normal heart sound and S2 normal heart sound; Negative for no murmurs Cardio Narrative: 4/6 systolic ejection murmur. GI non-tender and no masses Inspection: Negative for abdominal distention Auscultation: normoactive bowel sounds Palpation: soft; Negative for tender or guarding Bladder / Kidney Exam: No other Back/Spine no CVA tenderness General Back: Negative for CVA tenderness Cervical Spine: Negative for cervical spine tenderness Thoracic Spine / Upper Back: Negative for thoracic spinal tenderness Extremity Negative for normal to inspection Extremity Narrative: Bilateral lower extremity 1+ pitting edema. Redness left leg. Not particularly warm or tender. Either edema with venous stasis changes or cellulitis. General Extremety ED: Yes edema General Extremity: edema Neuro No oriented x3 and moves all extremities Neuro Narrative: Awake patient. Demented and confused. Sensorium / Orientation: alert, oriented to person, orientation impaired and confused; Negative for oriented to place, oriented to time, lethargic or stuporous Motor Exam: strength 5/5 throughout Psych mental status grossly normal Appearance: Negative for unkempt Speech: No other Mood & Affect: Negative for anxious Skin Skin Narrative: Lower extremity rash left leg. Lesions: no lesions Rashes: No no rashes MDM MDM MDM Narrative Medical decision making narrative: 82-year-old sent in from [facility] with bilateral lower extremity swelling redness left leg there is peripheral edema with skin changes secondary to venous stasis or is a cellulitis. She undergo a septic work-up due to she had a transient hypotension. Repeat exam patient doing well at 11:40 AM. She is resting comfortably. I spoke to the nurse at the [facility]. She has a history of cellulitis. They are comfortable with her being discharged back there. I sent a prescription of Keflex to their pharmacy in [place], [facility]. They will ensure that get started. She will get a dose of IV Unasyn here prior to discharge. They will ensure close follow-up with their medical staff physician. They can follow-up with a noninvasive study left lower extremity if this is not improving. Clinically at this time I think it is cellulitis and not a DVT. History & Record Review Discussion w/independent historian: EMS personnel and Patient Additional record(s) reviewed:: Prior inpatient record, Prior outpatient record, Prior ED visit, Prior labs and No prior records Lab Data Attestation: I reviewed the patient's lab results. Lab results narrative: CBC shows normal white count 8.6 H&H 11 and 35. Platelets 155. PT/INR 15 and 1. Electrolytes show gap is 6 BUN and creatinine 24 and 0.8. Glucose 93. Liver enzymes unremarkable. Lactic acid is normal at 0.7. BNP unremarkable at 54. Urinalysis is contaminated with 5-10 epithelial cells. It is positive for red and white cells but no nitrites and 1+ bacteria. Labs: Laboratory Results - last 24 hr 03/04/23 03/04/23 03/04/23 08:39 08:39 08:39 WBC 8.6 RBC 3.69 L Hgb 11.0 L Hct 35.1 L MCV 95.1 MCH 29.8 MCHC 31.3 L RDW Std Deviation 52.3 H RDW Coeff of Niurka 15.0 H Plt Count 155 MPV 9.9 Immature Gran % (Auto) 0.500 Neut % (Auto) 74.7 H Lymph % (Auto) 10.5 L [place] % (Auto) 13.2 H Eos % (Auto) 0.9 Baso % (Auto) 0.2 Absolute Neuts (auto) 6.4 Absolute Lymphs (auto) 0.90 Nucleated RBC % 0 PT 15.6 H INR 1.2 APTT 30.1 Sodium 140 Potassium 4.4 Chloride 105 Carbon Dioxide 29.0 Anion Gap 6 BUN 24 H Creatinine 0.80 Estim Creat Clear Calc 47.63 Est GFR (MDRD) Af Amer 88 Est GFR (MDRD) Non-Af 73 BUN/Creatinine Ratio 30.0 H Glucose 93 Lactic Acid Calcium 9.3 Total Bilirubin 0.70 AST 20 ALT 22 Alkaline Phosphatase 66 Troponin I High Sens 8 B-Natriuretic Peptide Total Protein 7.3 Albumin 2.5 L Globulin 4.8 H Albumin/Globulin Ratio 0.5 L Urine Color Urine Clarity Urine pH Ur Specific [place] Urine Protein Urine Glucose (UA) Urine Ketones Urine Occult Blood Urine Nitrite Urine Bilirubin Urine Urobilinogen Ur Leukocyte Esterase Urine RBC Urine WBC Ur Squamous Epith Cells Urine Bacteria Urine Mucus 03/04/23 03/04/23 03/04/23 08:39 08:50 09:00 WBC RBC Hgb Hct MCV MCH MCHC RDW Std Deviation RDW Coeff of [place] Plt Count MPV Immature Gran % (Auto) Neut % (Auto) Lymph % (Auto) [place] % (Auto) Eos % (Auto) Baso % (Auto) Absolute Neuts (auto) Absolute Lymphs (auto) Nucleated RBC % PT INR APTT Sodium Potassium Chloride Carbon Dioxide Anion Gap BUN Creatinine Estim Creat Clear Calc Est GFR (MDRD) Af Amer Est GFR (MDRD) Non-Af BUN/Creatinine Ratio Glucose Lactic Acid 0.7 Calcium Total Bilirubin AST ALT Alkaline Phosphatase Troponin I High Sens B-Natriuretic Peptide 54.3 Total Protein Albumin Globulin Albumin/Globulin Ratio Urine Color Yellow Urine Clarity Cloudy Urine pH 6.0 Ur Specific [place] 1.020 Urine Protein 30 H Urine Glucose (UA) Normal Urine Ketones 5 H Urine Occult Blood 150 H Urine Nitrite Negative Urine Bilirubin Negative Urine Urobilinogen 1 H Ur Leukocyte Esterase 500 H Urine RBC 25-50 SEEN Urine WBC 50-100 SEEN Ur Squamous Epith Cells 5-10 SEEN Urine Bacteria 1+ Urine Mucus 0 SEEN Radiography Chest X-Ray - ED: 1 View, Read by ED Physician, Read by Radiologist, Normal, Heart, Lungs, Mediastinum, Bony Structures, No Acute Disease and Chronic Changes Diagnostic Testing: Clinical Impression(s) from Imaging Studies Chest X-Ray 03/04/23 09:08 IMPRESSION: No acute cardiopulmonary process identified. Electronically Signed: Susana Aponte MD at 9:33 EDT Reading Location ID and State: [facility] / [place] Tel , Service support , Chest x-ray, portable, single view interpreted both of his cell and the radiologist shows no acute abnormality. Normal cardiac silhouette. No effusion. No infiltrate. Rhythm Strip Rhythm Strip: Sinus Rhythm Rate: 68 Ectopy: None EKG Initial EKG: Attestation: I personally reviewed and interpreted this EKG as follows: Interpretation: Sinus Rhythm and No Acute Injury Pattern Comments: Normal sinus rhythm rate of 68 no acute signs of [place] or ischemia. No dysrhythmia. Discharge Plan Triage Chief Complaint: Edema ED Provider: Checo Sullivan Dx/Rx/DC Orders Clinical Impression: Cellulitis of left leg, Dementia Instructions: ED Cellulitis Prescriptions: New cephalexin 500 mg capsule 500 mg PO Q6 10 Days Qty: 40 0RF No Action multivitamin Tablet 1 tab PO DAILY amlodipine 10 mg tablet 10 mg PO DAILY Label Comments: Take 1 tablet by mouth once daily. lorazepam 0.5 mg tablet 0.5 mg PO Q6H PRN (Reason: anxiety) Qty: 28 0RF Primary Care Provider: Liz Hoover Referrals: Celine Downs MD [Med Staff - Active Staff] - 2 Days Liz Hoover MD [Primary Care Provider] - Activity Restrictions/Additional Instructions: Appears as cellulitis of the left lower leg. If not improving he can obtain a noninvasive study or ultrasound of the left leg to evaluate for possible blood clot. That was not available today. To be done to the ER. Patient was given a dose of IV Unasyn. She will be started on the prescription antibiotic Keflex 500 mg 4 times a day for 10 days. I [facility] in [place]. Have your medical staff physician, Dr. Downs, reevaluate the patient in 1 to 2 days. Disposition Disposition: Home, Self Care
[2023-03-04 08:42] VITALS: BP 133/62
[2023-03-04 08:51] LABS: Absolute Neutrophil Count 6.4 X10^3/uL (2.0-7.7); Basophil# 0.02 X10^3/uL; Basophil% 0.2 % (0-1); Eosinophil# 0.08 X10^3/uL; Eosinophils% 0.9 % (0-5); Hematocrit 35.1 % (37-47); Lymphocyte % 10.5 % (19-41); Mean Corp Hgb Conc 31.3 g/dL (32-36); Mean Corpuscular Hgb 29.8 pg (27.0-32.0); Mean Corpuscular Volume 95.1 fL (81-99); Mean Platelet Vol. 9.9 fl (6.2-12.0); Monocyte# 1.13 X10^3/uL; Monocyte% 13.2 % (0-10); NRBC Flagged by Analyzer 0 % (0-5); Neutrophil # 6.38 X10^3/uL (2.7-7.7); Neutrophil % 74.7 % (47-70); Platelet Count 155 K/mm3 (150-450); RBC Distribution Width SD 52.3 fl (35.1-43.9); Red Blood Count 3.69 M/mm3 (4.2-5.4); White Blood Count 8.6 K/mm3 (4.4-11.0)
[2023-03-04 09:04] LABS: Mucous, Urine 0 SEEN /hpf (<or=2+)
--- NOTE | 2023-03-04 09:08 | RAD_ITS ---
HISTORY: sepsis. TECHNIQUE: XR Chest 1 View. COMPARISON: 06/01/2021. FINDINGS: CARDIOMEDIASTINAL BORDERS: Cardiac silhouette within normal limits in size. Mediastinal contour unchanged with tortuosity and calcification of the aorta and calcified left hilar lymph nodes. LUNGS: Radiographically clear. PLEURA: No pleural effusion or pneumothorax seen. OSSEOUS STRUCTURES: Degenerative change. RAD/Chest 1 View (Portable) IMPRESSION: No acute cardiopulmonary process identified. Electronically Signed: Susana Aponte MD at 9:33 EDT ,
[2023-03-04 09:10] LABS: BNP,B-Type NATRIURETIC PEPTIDE 54.3 pg/mL (0-100)
[2023-03-04 09:14] LABS: ALB/GLOB Ratio 0.5 RATIO (0.9-2.4); AST(SGOT) 20 U/L (15-37); Alanine Aminotransfer ALT/SGPT 22 U/L (13-56); Albumin, Serum 2.5 g/dL (3.2-5.0); Alkaline Phosphatase 66 U/L (45-117); Anion Gap 6 (5-15); BUN 24 mg/dL (7-18); Calcium,Total 9.3 mg/dL (8.5-10.1); Chloride 105 mmol/L (98-107); EST Glomerular Filtration Rate 73 mL/min (>60); Est Glom Filt Rate - Afr Amer 88 mL/min (>60); Estimated Creatinine Clearance 47.63 ml/min; Globulin 4.8 g/dL (2.2-4.2); Glucose 93 mg/dL (74-106); Potassium 4.4 mmol/L (3.5-5.1); Protein, Total 7.3 g/dL (6.4-8.2); Sodium Level 140 mmol/L (136-145); Troponin-I HS 8 pg/mL (3.0-54.0)
[2023-03-04 09:24] LABS: International Normalized Ratio 1.2; Prothrombin Time (Protime)PT. 15.6 SECONDS (11.7-14.9)
[2023-03-04 09:25] LABS: Partial Thromboplast Time 30.1 Seconds (24.1-36.2)
[2023-03-04 09:26] LABS: Lactic Acid 0.7 mmol/L (0.4-1.9)
[2023-03-04 09:49] LABS: Color, Urine Yellow (Yellow); Glucose, Dipstick Normal (Normal); Ketone-Dipstick 5 mg/dl (Negative); Leukocyte Esterase-Dipstick 500 /ul (Negative); Nitrite-Dipstick Negative (Negative); Occult Blood-Urine 150 /ul (Negative); Protein-Dipstick 30 mg/dl (Negative); Urine Bilirubin Dipstick Negative (Negative); Urine Clarity Cloudy (Clear); Urine Urobilinogen 1 mg/dl (Normal)
[2023-03-04 10:19] LABS: Bacteria 1+ /hpf (None Seen); Red Blood Cells-Urine 25-50 SEEN /hpf (0-5); Squamous Epithelial Cells - UA 5-10 SEEN /hpf (5-10); White Blood Cells 50-100 SEEN /hpf (0-5)
[2023-03-04 10:53] VITALS: BP 103/73; PULSE 65; RESP 15
[2023-03-04 12:00] VITALS: BP 105/57; PULSE 63
== END 2023-03-04 12:13 | disposition home or self-care (01) ==
PROVIDERS: Emergency Provider Emergency Medicine; PCP Internal Medicine; Visit Provider Emergency Medicine
DX: L03.116 Cellulitis of left lower limb (principal); F03.90 Unspecified dementia, unspecified severity, without behavioral disturbance, psychotic disturbance, mood disturbance, and anxiety; I10 Essential (primary) hypertension; I25.10 Atherosclerotic heart disease of native coronary artery without angina pectoris; R03.1 Nonspecific low blood-pressure reading; E78.5 Hyperlipidemia, unspecified; Z87.891 Personal history of nicotine dependence; M79.89 Other specified soft tissue disorders; F32.A Depression, unspecified; R94.31 Abnormal electrocardiogram [ECG] [EKG]; I45.10 Unspecified right bundle-branch block; Z79.899 Other long term (current) drug therapy
CPT/HCPCS: 36415; 71045; 80053; 81001; 83605; 83880; 84484; 85025; 85610; 85730; 87040; 87086; 87088; 93005; 96365; 99285; P9612; A4216; J0295

== ENCOUNTER → 2023-03-07 | Outpatient (REF) | payer MEDICARE, MEDICAID, SELFPAY ==
[2023-03-07 10:10] LABS: Absolute Lymphocyte Count 0.71 X10^3/uL (0.83-4.51); Absolute Neutrophil Count 6.5 X10^3/uL (2.0-7.7); Basophil# 0.02 X10^3/uL; Basophil% 0.2 % (0-1); Eosinophil# 0.14 X10^3/uL; Eosinophils% 1.7 % (0-5); Hematocrit 32.9 % (37-47); Hemoglobin 10.6 g/dL (12.0-15.0); Lymphocyte # 0.71 X10^3/ul (0.83-4.51); Lymphocyte % 8.5 % (19-41); Mean Corp Hgb Conc 32.2 g/dL (32-36); Mean Corpuscular Hgb 30.3 pg (27.0-32.0); Monocyte# 0.94 X10^3/uL; Monocyte% 11.3 % (0-10); NRBC Flagged by Analyzer 0 % (0-5); Neutrophil # 6.49 X10^3/uL (2.7-7.7); Neutrophil % 77.9 % (47-70); Platelet Count 196 K/mm3 (150-450); RBC Distribution Width CV 14.6 % (11.6-14.6); RBC Distribution Width SD 50.8 fl (35.1-43.9); White Blood Count 8.3 K/mm3 (4.4-11.0)
[2023-03-07 10:16] LABS: ALB/GLOB Ratio 0.4 RATIO (0.9-2.4); AST(SGOT) 28 U/L (15-37); Alanine Aminotransfer ALT/SGPT 26 U/L (13-56); Albumin, Serum 1.9 g/dL (3.2-5.0); Alkaline Phosphatase 72 U/L (45-117); Anion Gap 6 (5-15); BUN 24 mg/dL (7-18); Chloride 110 mmol/L (98-107); Creatinine, Serum 0.67 mg/dL (0.55-1.02); EST Glomerular Filtration Rate 90 mL/min (>60); Est Glom Filt Rate - Afr Amer 109 mL/min (>60); Globulin 4.8 g/dL (2.2-4.2); Glucose 107 mg/dL (74-106); Potassium 3.9 mmol/L (3.5-5.1); Protein, Total 6.7 g/dL (6.4-8.2); Sodium Level 142 mmol/L (136-145)
[2023-03-07 10:35] LABS: Color, Urine Yellow (Yellow); Glucose, Dipstick Normal (Normal); Ketone-Dipstick Negative (Negative); Leukocyte Esterase-Dipstick Negative /ul (Negative); Nitrite-Dipstick Negative (Negative); Occult Blood-Urine Negative /ul (Negative); Protein-Dipstick 15 mg/dl (Negative); Specific Gravity, Urine 1.015 (1.002-1.030); Urine Bilirubin Dipstick Negative (Negative); Urine Clarity Sl. Cloudy (Clear); Urine Urobilinogen 8 mg/dl (Normal)
== END ==
LOC: OLS.WHLCAR 05:00
PROVIDERS: PCP Internal Medicine; Visit Provider Internal Medicine
DX: R53.83 Other fatigue (principal); G30.9 Alzheimer's disease, unspecified; F03.918 Unspecified dementia, unspecified severity, with other behavioral disturbance; F41.9 Anxiety disorder, unspecified; R45.1 Restlessness and agitation; I10 Essential (primary) hypertension; Z79.899 Other long term (current) drug therapy
CPT/HCPCS: 36415; 80053; 81002; 85025; 87086

== ENCOUNTER → 2023-03-13 | Outpatient (REF) | payer MEDICARE, MEDICAID, SELFPAY ==
[2023-03-13 06:51] LABS: Anion Gap 2 (5-15); BUN 19 mg/dL (7-18); BUN/Creat Ratio 36.3 RATIO (10-20); Calcium,Total 8.6 mg/dL (8.5-10.1); Chloride 110 mmol/L (98-107); Creatinine, Serum 0.52 mg/dL (0.55-1.02); EST Glomerular Filtration Rate 119 mL/min (>60); Est Glom Filt Rate - Afr Amer 144 mL/min (>60); Glucose 89 mg/dL (74-106); Potassium 4.1 mmol/L (3.5-5.1); Sodium Level 140 mmol/L (136-145)
[2023-03-13 08:15] LABS: Absolute Lymphocyte Count 0.79 X10^3/uL (0.83-4.51); Absolute Neutrophil Count 3.2 X10^3/uL (2.0-7.7); Basophil# 0.02 X10^3/uL; Basophil% 0.4 % (0-1); Eosinophil# 0.16 X10^3/uL; Eosinophils% 3.3 % (0-5); Hematocrit 33.5 % (37-47); Hemoglobin 10.6 g/dL (12.0-15.0); Lymphocyte # 0.79 X10^3/ul (0.83-4.51); Lymphocyte % 16.2 % (19-41); Mean Corp Hgb Conc 31.6 g/dL (32-36); Mean Corpuscular Hgb 29.7 pg (27.0-32.0); Mean Corpuscular Volume 93.8 fL (81-99); Mean Platelet Vol. 9.6 fl (6.2-12.0); Monocyte# 0.65 X10^3/uL; Monocyte% 13.3 % (0-10); NRBC Flagged by Analyzer 0 % (0-5); Neutrophil # 3.22 X10^3/uL (2.7-7.7); Platelet Count 304 K/mm3 (150-450); Red Blood Count 3.57 M/mm3 (4.2-5.4); White Blood Count 4.9 K/mm3 (4.4-11.0)
== END ==
LOC: OLS.WHLCAR 05:00
PROVIDERS: PCP Internal Medicine; Referring Provider Internal Medicine; Visit Provider Internal Medicine
DX: G93.32 Myalgic encephalomyelitis/chronic fatigue syndrome (principal)
CPT/HCPCS: 36415; 80048; 85025

== ENCOUNTER → 2023-04-10 | Outpatient (REF) | payer MEDICARE, MEDICAID, SELFPAY ==
[2023-04-10 07:02] LABS: Absolute Lymphocyte Count 0.96 X10^3/uL (0.83-4.51); Absolute Neutrophil Count 2.4 X10^3/uL (2.0-7.7); Basophil# 0.01 X10^3/uL; Basophil% 0.2 % (0-1); Eosinophil# 0.11 X10^3/uL; Eosinophils% 2.7 % (0-5); Hematocrit 36.4 % (37-47); Hemoglobin 11.4 g/dL (12.0-15.0); Lymphocyte # 0.96 X10^3/ul (0.83-4.51); Lymphocyte % 23.5 % (19-41); Mean Corp Hgb Conc 31.3 g/dL (32-36); Mean Corpuscular Hgb 30.1 pg (27.0-32.0); Mean Platelet Vol. 9.4 fl (6.2-12.0); Monocyte% 14.7 % (0-10); NRBC Flagged by Analyzer 0 % (0-5); Neutrophil # 2.38 X10^3/uL (2.7-7.7); Neutrophil % 58.4 % (47-70); Platelet Count 215 K/mm3 (150-450); RBC Distribution Width CV 15.3 % (11.6-14.6); RBC Distribution Width SD 53.7 fl (35.1-43.9); Red Blood Count 3.79 M/mm3 (4.2-5.4); White Blood Count 4.1 K/mm3 (4.4-11.0)
[2023-04-10 07:22] LABS: Anion Gap 3 (5-15); BUN 13 mg/dL (7-18); BUN/Creat Ratio 20.1 RATIO (10-20); Calcium,Total 9.2 mg/dL (8.5-10.1); Chloride 109 mmol/L (98-107); Creatinine, Serum 0.65 mg/dL (0.55-1.02); EST Glomerular Filtration Rate 93 mL/min (>60); Est Glom Filt Rate - Afr Amer 113 mL/min (>60); Glucose 88 mg/dL (74-106); Potassium 4.3 mmol/L (3.5-5.1); Sodium Level 140 mmol/L (136-145)
== END ==
LOC: OLS.WHLCAR 05:00
PROVIDERS: PCP Internal Medicine; Visit Provider Nurse Practitioner Adult Health
DX: G93.32 Myalgic encephalomyelitis/chronic fatigue syndrome (principal)
CPT/HCPCS: 36415; 80048; 85025

== ENCOUNTER → 2023-05-08 | Outpatient (REF) | payer MEDICARE, MEDICAID, SELFPAY ==
[2023-05-08 08:20] LABS: Absolute Lymphocyte Count 0.97 X10^3/uL (0.83-4.51); Absolute Neutrophil Count 2.9 X10^3/uL (2.0-7.7); Basophil# 0.01 X10^3/uL; Basophil% 0.2 % (0-1); Eosinophil# 0.13 X10^3/uL; Eosinophils% 2.8 % (0-5); Lymphocyte # 0.97 X10^3/ul (0.83-4.51); Lymphocyte % 20.7 % (19-41); Mean Corp Hgb Conc 30.6 g/dL (32-36); Mean Corpuscular Hgb 30.4 pg (27.0-32.0); Mean Corpuscular Volume 99.4 fL (81-99); Mean Platelet Vol. 10.9 fl (6.2-12.0); Monocyte# 0.67 X10^3/uL; Monocyte% 14.3 % (0-10); NRBC Flagged by Analyzer 0 % (0-5); Neutrophil # 2.89 X10^3/uL (2.7-7.7); Neutrophil % 61.6 % (47-70); Platelet Count 187 K/mm3 (150-450); RBC Distribution Width CV 14.6 % (11.6-14.6); RBC Distribution Width SD 53.3 fl (35.1-43.9); Red Blood Count 3.62 M/mm3 (4.2-5.4); White Blood Count 4.7 K/mm3 (4.4-11.0)
[2023-05-08 08:32] LABS: Anion Gap 5 (5-15); BUN 26 mg/dL (7-18); Chloride 108 mmol/L (98-107); Cholesterol 139 mg/dL (200); Creatinine, Serum 0.67 mg/dL (0.55-1.02); EST Glomerular Filtration Rate 90 mL/min (>60); Est Glom Filt Rate - Afr Amer 109 mL/min (>60); Glucose 76 mg/dL (74-106); High Density Lipoprotein 60 mg/dL; Potassium 4.3 mmol/L (3.5-5.1); Sodium Level 138 mmol/L (136-145); Triglycerides 83 mg/dL; Very Low Density Lipoprotein 17 mg/dL (5-40)
== END ==
LOC: OLS.WHLCAR 05:00
PROVIDERS: PCP Internal Medicine; Visit Provider Internal Medicine
DX: G93.32 Myalgic encephalomyelitis/chronic fatigue syndrome (principal); E78.2 Mixed hyperlipidemia; I10 Essential (primary) hypertension; F41.9 Anxiety disorder, unspecified
CPT/HCPCS: 36415; 80048; 80061; 85025

== ENCOUNTER → 2023-06-12 | Outpatient (REF) | payer MEDICARE, MEDICAID, SELFPAY ==
[2023-06-12 07:53] LABS: Absolute Lymphocyte Count 1.06 X10^3/uL (0.83-4.51); Absolute Neutrophil Count 2.1 X10^3/uL (2.0-7.7); Basophil# 0.01 X10^3/uL; Basophil% 0.3 % (0-1); Eosinophil# 0.14 X10^3/uL; Eosinophils% 3.6 % (0-5); Hemoglobin 11.1 g/dL (12.0-15.0); Lymphocyte # 1.06 X10^3/ul (0.83-4.51); Mean Corp Hgb Conc 30.8 g/dL (32-36); Mean Corpuscular Hgb 30.2 pg (27.0-32.0); Mean Corpuscular Volume 97.8 fL (81-99); Mean Platelet Vol. 10.1 fl (6.2-12.0); Monocyte% 15.3 % (0-10); NRBC Flagged by Analyzer 0 % (0-5); Neutrophil # 2.11 X10^3/uL (2.7-7.7); Neutrophil % 53.5 % (47-70); Platelet Count 165 K/mm3 (150-450); RBC Distribution Width CV 13.8 % (11.6-14.6); RBC Distribution Width SD 50.5 fl (35.1-43.9); Red Blood Count 3.68 M/mm3 (4.2-5.4); White Blood Count 3.9 K/mm3 (4.4-11.0)
[2023-06-12 08:02] LABS: Anion Gap 3 (5-15); BUN 25 mg/dL (7-18); BUN/Creat Ratio 34.2 RATIO (10-20); Calcium,Total 8.8 mg/dL (8.5-10.1); Chloride 109 mmol/L (98-107); Creatinine, Serum 0.73 mg/dL (0.55-1.02); EST Glomerular Filtration Rate 81 mL/min (>60); Est Glom Filt Rate - Afr Amer 98 mL/min (>60); Glucose 95 mg/dL (74-106); Potassium 4.2 mmol/L (3.5-5.1); Sodium Level 141 mmol/L (136-145)
== END ==
LOC: OLS.WHLCAR 05:00
PROVIDERS: PCP Internal Medicine; Visit Provider Internal Medicine
DX: G93.32 Myalgic encephalomyelitis/chronic fatigue syndrome (principal)
CPT/HCPCS: 36415; 80048; 85025

== ENCOUNTER → 2023-06-22 | Outpatient (REF) | payer MEDICARE, MEDICAID, SELFPAY ==
[2023-06-22 09:11] LABS: Valproic Acid (Depakene) Level 25 ug/mL (50-100)
== END ==
LOC: OLS.WHLCAR 05:00
PROVIDERS: PCP Internal Medicine
DX: Z79.899 Other long term (current) drug therapy (principal)
CPT/HCPCS: 36415; 80164

== ENCOUNTER → 2023-07-10 | Outpatient (REF) | payer MEDICARE, MEDICAID, SELFPAY ==
[2023-07-10 08:50] LABS: Absolute Lymphocyte Count 0.83 X10^3/uL (0.83-4.51); Absolute Neutrophil Count 1.9 X10^3/uL (2.0-7.7); Basophil# 0.01 X10^3/uL; Basophil% 0.3 % (0-1); Eosinophil# 0.13 X10^3/uL; Eosinophils% 3.9 % (0-5); Hematocrit 37.3 % (37-47); Hemoglobin 11.3 g/dL (12.0-15.0); Lymphocyte # 0.83 X10^3/ul (0.83-4.51); Lymphocyte % 24.7 % (19-41); Mean Corp Hgb Conc 30.3 g/dL (32-36); Mean Corpuscular Hgb 29.4 pg (27.0-32.0); Mean Corpuscular Volume 97.1 fL (81-99); Mean Platelet Vol. 10.2 fl (6.2-12.0); Monocyte# 0.47 X10^3/uL; NRBC Flagged by Analyzer 0 % (0-5); Neutrophil # 1.91 X10^3/uL (2.7-7.7); Neutrophil % 56.8 % (47-70); Platelet Count 151 K/mm3 (150-450); RBC Distribution Width CV 14.1 % (11.6-14.6); Red Blood Count 3.84 M/mm3 (4.2-5.4); White Blood Count 3.4 K/mm3 (4.4-11.0)
[2023-07-10 09:07] LABS: Anion Gap 3 (5-15); BUN 22 mg/dL (7-18); BUN/Creat Ratio 31.7 RATIO (10-20); Calcium,Total 8.9 mg/dL (8.5-10.1); Chloride 110 mmol/L (98-107); Creatinine, Serum 0.69 mg/dL (0.55-1.02); EST Glomerular Filtration Rate 86 mL/min (>60); Est Glom Filt Rate - Afr Amer 104 mL/min (>60); Glucose 84 mg/dL (74-106); Potassium 4.1 mmol/L (3.5-5.1); Sodium Level 141 mmol/L (136-145)
== END ==
LOC: OLS.WHLCAR 05:00
PROVIDERS: PCP Internal Medicine; Visit Provider Internal Medicine
DX: G93.32 Myalgic encephalomyelitis/chronic fatigue syndrome (principal)
CPT/HCPCS: 36415; 80048; 85025

== ENCOUNTER → 2023-08-14 | Outpatient (REF) | payer MEDICARE, MEDICAID, SELFPAY ==
[2023-08-14 09:12] LABS: Absolute Lymphocyte Count 0.92 X10^3/uL (0.83-4.51); Basophil# 0.01 X10^3/uL; Basophil% 0.3 % (0-1); Eosinophil# 0.13 X10^3/uL; Eosinophils% 3.7 % (0-5); Hematocrit 40.3 % (37-47); Hemoglobin 12.3 g/dL (12.0-15.0); Lymphocyte # 0.92 X10^3/ul (0.83-4.51); Mean Corp Hgb Conc 30.5 g/dL (32-36); Mean Corpuscular Hgb 29.9 pg (27.0-32.0); Mean Corpuscular Volume 98.1 fL (81-99); Mean Platelet Vol. 10.1 fl (6.2-12.0); Monocyte# 0.47 X10^3/uL; Monocyte% 13.3 % (0-10); NRBC Flagged by Analyzer 0 % (0-5); Neutrophil # 2.01 X10^3/uL (2.7-7.7); Neutrophil % 56.7 % (47-70); Platelet Count 177 K/mm3 (150-450); RBC Distribution Width CV 14.4 % (11.6-14.6); RBC Distribution Width SD 51.8 fl (35.1-43.9); Red Blood Count 4.11 M/mm3 (4.2-5.4); White Blood Count 3.5 K/mm3 (4.4-11.0)
[2023-08-14 09:28] LABS: Anion Gap 2 (5-15); BUN 22 mg/dL (7-18); Calcium,Total 9.2 mg/dL (8.5-10.1); Chloride 109 mmol/L (98-107); Creatinine, Serum 0.71 mg/dL (0.55-1.02); EST Glomerular Filtration Rate 84 mL/min (>60); Est Glom Filt Rate - Afr Amer 101 mL/min (>60); Glucose 94 mg/dL (74-106); Potassium 4.2 mmol/L (3.5-5.1); Sodium Level 139 mmol/L (136-145)
== END ==
LOC: OLS.WHLCAR 05:00
PROVIDERS: PCP Internal Medicine; Visit Provider Internal Medicine
DX: G30.9 Alzheimer's disease, unspecified (principal); F41.9 Anxiety disorder, unspecified; R45.1 Restlessness and agitation; I10 Essential (primary) hypertension
CPT/HCPCS: 36415; 80048; 85025

== ENCOUNTER → 2023-09-11 | Outpatient (REF) | payer MEDICARE, MEDICAID, SELFPAY ==
--- OUTSIDE RECORDS SUMMARY | 2023-09-11 04:52 | XMS RPT_ITS | CCD ---
Author Name Unknown Address [address] [place] [address] Organization [facility] Care Team Providers Care 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 Name Role Phone Moody Hoover MD Primary Care Provider MOODY HOOVER Primary Care Unavailable JOVANNI GONSALES Attending Unavailable Moody Hoover MD Primary Care Provider TALKAMERON MOODY Chari Primary Care Unavailable TALAMPAS MOODY D Attending Unavailable TALAMPAS MOODY D Primary Care Unavailable TALAMPAS, MOODY D Referring Unavailable TALAMPAS, MOODY D Referring Unavailable OLDER, ALEXANDREA Attending Unavailable TALAMPAS, MOODY D Primary Care Unavailable TALAMPAS, MOODY D Primary Care Unavailable JOSELIN NICHOLE Attending Unavailable TALAMPALRON MOODY D Primary Care Unavailable JOSELIN NICHOLE Referring Unavailable Medications Current Medications Medication Drug Class(es) Dates Sig (Normalized) Sig (Original) perflutren lipid microspheres 1.3 mL in NaCl (PF) 0.9% 10 mL injection (DEFINITY) (6 sources) Start: 07-20-2021 End: 10-19-2022 perflutren lipid microspheres 1.3 mL in NaCl (PF) 0.9% 10 mL injection (DEFINITY) 125 ml sodium chloride 9 mg/ml prefilled syringe (6 sources) Start: 07-20-2021 End: 10-19-2022 sodium chloride 0.9 % (flush) 10 mL (BD POSIFLUSH) Completed/Discontinued Medications Medication Drug Class(es) Dates Sig (Normalized) Sig (Original) amLODIPine 10 mg oral tablet (6 sources) Dihydropyridine Calcium Channel Cristobal Start: 03-16-2022 take 1 tablet by mouth once daily amLODIPine (NORVASC) 10 mg tablet Take 1 tablet by mouth once daily. 90 tablet 3 03/16/2022 Active Problems Active Problems Problem Classification Problem Date Documented Date Episodic/Chronic Disorders of lipid metabolism (9 sources) Mixed hyperlipidemia; Translations: [Mixed hyperlipidemia] Onset: 04-10-2006 10-11-2015 Chronic Essential hypertension (10 sources) Essential hypertension; Translations: [Essential (primary) hypertension] Onset: 09-19-2021 Chronic Genitourinary symptoms and ill-defined conditions (2 sources) Urinary symptoms ; Translations: [Unspecified symptoms and signs involving the genitourinary system] Onset: 06-09-2022 Episodic Malaise and fatigue (4 sources) Malaise; Translations: [Other malaise] Onset: 06-06-2022 Episodic Mood disorders (8 sources) Reactive depression (situational); Translations: [Major depressive disorder, single episode, unspecified] Onset: 10-04-2017 10-04-2017 Chronic Osteoarthritis (6 sources) Osteoarthritis of left knee joint; Translations: [Unilateral primary osteoarthritis, left knee] Onset: 05-24-2015 05-24-2015 Chronic Other aftercare (1 source) Patient encounter status; Translations: [Other custodial (current) drug therapy] Episodic Other connective tissue disease (1 source) Pain in left lower limb; Translations: [Pain in left leg] Episodic Other nervous system disorders (1 source) Impaired cognition; Translations: [Other symptoms and signs involving cognitive functions and awareness] Episodic Other nutritional; endocrine; and metabolic disorders (6 sources) Obesity; Translations: [Obesity, unspecified] 03-12-2016 Chronic Residual codes; unclassified (1 source) Memory impairment; Translations: [Other amnesia] Episodic Residual codes; unclassified (1 source) Other amnesia; Translations: [Impaired memory] Onset: 06-09-2022 Episodic Past or Other Problems Problem Classification Problem Date Documented Da te Episodic/Chronic Allergic reactions (6 sources) Eczema; Translations: [Dermatitis, unspecified] Onset: 06-12-2011 09-19-2021 Episodic Cancer of cervix (6 sources) History of malignant neoplasm of cervix; Translations: [Personal history of malignant neoplasm of cervix uteri] Onset: 08-28-2013 08-28-2013 Episodic Diabetes mellitus without complication (8 sources) Impaired fasting glycemia; Translations: [Impaired fasting glucose] Onset: 06-11-2008 06-11-2008 Episodic Other aftercare (1 source) Other custodial (current) drug therapy; Translations: [Encounter for long-term current use of medication] Onset: 01-04-2022 Episodic Other connective tissue disease (1 source) Pain in left leg; Translations: [Pain of left lower extremity] Onset: 01-04-2022 Episodic Other nervous system disorders (1 source) Other symptoms and signs involving cognitive functions and awareness; Translations: [Cognitive deficits] Onset: 01-04-2022 Episodic Other non-traumatic joint disorders (6 sources) Shoulder joint pain; Translations: [Pain in unspecified shoulder] Onset: 10-16-2006 10-16-2006 Episodic Other screening for suspected conditions (not mental disorders or infectious disease) (7 sources) Imaging of lung abnormal ; Translations: [Abnormal results of pulmonary function studies] Onset: 06-13-2015 09-19-2021 Episodic Results Test Name Value Interpretation Reference Range Facil ity Vital Signs Date Time Vital Sign Value Performing Clinician Joesph garcia 06-06-2022 15:10-0400 Diastolic blood pressure 78 mm[Hg] Joselin Nichole COSMETICS COUNTER MANAGER.CYLINDER MACHINE OPERATOR Work Phone: [facility] 06-06-2022 15:10-0400 Heart rate 65 /min Joselin Nichole COSMETICS COUNTER MANAGER.CYLINDER MACHINE OPERATOR Work Phone: [facility] 06-06-2022 15:10-0400 Systolic blood pressure 157 mm[Hg] Joselin Nichole COSMETICS COUNTER MANAGER.CYLINDER MACHINE OPERATOR Work Phone: [facility] 06-06-2022 14:57-0400 Body weight 75.75 kg Joselin Nichole COSMETICS COUNTER MANAGER.CYLINDER MACHINE OPERATOR Work Phone: [facility] 06-06-2022 14:57-0400 Respiratory rate 16 /min Joselin Nichole COSMETICS COUNTER MANAGER.CYLINDER MACHINE OPERATOR Work Phone: [facility] 06-06-2022 14:57-0400 SaO2% (BldA) [Mass fraction] 98 % Joselin Nichole COSMETICS COUNTER MANAGER.CYLINDER MACHINE OPERATOR Work Phone: [facility] 01-04-2022 16:48-0400 Diastolic blood pressure 86 mm[Hg] Moody Hoover MD Work Phone: [facility] 01-04-2022 16:48-0400 Systolic blood pressure 146 mm[Hg] Moody Hoover MD Work Phone: [facility] 01-04-2022 15:50-0400 Body weight 80.29 kg Moody Hoover MD Work Phone: [facility] 01-04-2022 15:50-0400 Heart rate 74 /min Moody Hoover MD Work Phone: [facility] 01-04-2022 15:50-0400 SaO2% (BldA) [Mass fraction] 98 % Moody Hoover MD Work Phone: [facility] Encounters Encounter Date Encounter Type Care Provider Facility Start: 08-23-2022 Telephone encounter Moody castillo MD Work Phone: [facility] Plan of Treatment Date Care Activity Detail Author Start: 06-03-2028 Urine microalbumin profile DTA P,TDAP,TD (2 - Td or Tdap) [facility] Start: 06-10-2025 DIABETES SCREEN DIABETES SCREEN [facility] Start: 11-23-2023 DIABETES SCREEN DIABETES SCREEN [facility] Start: 03-23-2023 Influenza vaccination INFLUENZA (#1) [facility] Immunizations Immunization Date Immunization Notes Care Provider Abel sin 10-17-2019 influenza, high dose seasonal, preservative-free Alexandrea Older COSMETICS COUNTER MANAGER.MAKEUP EDITOR Work Phone: [facility] 09-02-2018 influenza, high dose seasonal, preservative-free Alexandrea Older COSMETICS COUNTER MANAGER.MAKEUP EDITOR Work Phone: [facility] 06-03-2018 tetanus toxoid, redu john diphtheria toxoid, and acellular pertussis vaccine, adsorbed Alexandrea Older COSMETICS COUNTER MANAGER.MAKEUP EDITOR Work Phone: [facility] 07-26-2017 influenza, high dose seasonal, preservative-free Alexandrea Older COSMETICS COUNTER MANAGER.MAKEUP EDITOR Work Phone: [facility] 05-24-2015 pneumococcal conjuga te vaccine, 13 valent Alexandrea Older COSMETICS COUNTER MANAGER.MAKEUP EDITOR Work Phone: [facility] 06-23-2014 influenza, seasonal, injectable Alexandrea Older COSMETICS COUNTER MANAGER.MAKEUP EDITOR Work Phone: [facility] 09-09-2012 influenza virus vacc ine, unspecified formulation Alexandrea Older COSMETICS COUNTER MANAGER.MAKEUP EDITOR Work Phone: [facility] 07-07-2009 influenza virus vacc ine, unspecified formulation Alexandrea Older COSMETICS COUNTER MANAGER.MAKEUP EDITOR Work Phone: [facility] 10-11-2006 pneumococcal polysaccharide vaccine, 23 valent Alexandrea Older COSMETICS COUNTER MANAGER.MAKEUP EDITOR Work Phone: [facility] Work Phone: 07-18-2006 influenza virus vacc ine, unspecified formulation Alexandrea Older COSMETICS COUNTER MANAGER.MAKEUP EDITOR Work Phone: [facility] Work Phone: Payers Date Payer Category Payer Medicare MMO MEDICARE MMO MEDADVANTAGE O [id number] 2017-Present [phone] [address] [place] [id number] [id number] 2017 Medicare MMO MEDICARE MMO MEDADVANTAGE O [id number] 2017-Present [phone] [address] [place] [address] [facility] [id number] 2017 Unknown [id number] Social History Date Type Detail Facility Start: 06-13-2013 End: 06-06-2022 Tobacco smoking status NHIS Ex-smoker [facility] Work Phone: End: 09-24-1997 History of tobacco use Current smoker [facility] End: 09-24-1997 History of tobacco use Cigarette Smoker [facility] Start: 01-04-2022 End: 06-10-2022 Alcohol intake Current non-drinker of alcohol (finding) [facility] Start: 1940 Sex Assigned At Not on file [facility] Start: 12-25-2021 End: 06-06-2022 Exposure to SARS-CoV-2 (event) Not sure [facility] Start: 06-13-2013 End: 06-06-2022 Cigarettes smoked current (pack per day) - Reported 2 [facility] Start: 06-13-2013 End: 06-06-2022 Tobacco use and exposure Smokeless tobacco non-user [facility] Clinical Notes 05-15-2013 to 08-25-2022 Telephone Encounter - Naima Bales LPN - 08/25/2022 2:30 PM ESTTelephone Encounter - Maricruz Tidwell LPN - 08/23/2022 1:45 PM Forest Nichole APRN.CYLINDER MACHINE OPERATOR - 06/06/2022 2:40 PM EDT Note Date & Type Note Facility 08-25-2022 Miscellaneous Notes Formattin g of this note might be different from the original. Led the facility and pt is now following with the provider at the facility Dr. Lisa. Yulissa from [facility] called to verify med orders. Yulissa was notified of pt's med list on file here. She is going to fax a standing order for MOM & Tylenol. Maricruz Tidwell LPN documented in this encounter [facility] 06-10-2022 Note HNO ID: [id number] Author: Tessa Solorzano RN Service: Emergency Medicine Author Type: Registered Nurse Type: ED Notes Filed: 06/10/2022 5:31 PM Note Text: EKG in progress [facility] 06-06-2022 Note HNO ID: [id number] Author: Joselin Nichole APRN.CYLINDER MACHINE OPERATOR Service: ? Author Type: Nurse Specialist Type: Progress Notes Filed: 06/06/2022 4:59 PM Note Text: SUBJECTIVE: FECAL OCCULT BLOOD Never done HPI Catia Pabon is a 82 year old female. PMH significant for ACTIVE PROBLEM LIST Reactive Depression Hyperlipidemia, Mixed Pain in Joint, Shoulder Region Impaired Fasting Glucose Essential Hypertension Eczema History of Cervical Cancer Primary Osteoarthritis of Left Knee Abnormal Pet Scan of Lung Obesity Since last here seen at ER for abdominal and back complaints: No Concern regarding dementia, daughter did not want to take to ER per phone encounter 05/26/2022. Today presents with her son Hudson, her CARRERA. He notes she was not feeling well last week. Appetite was reduced, some malaise.Notes feeling back to baseline currently. Without report of abdominal or back complaints today. No MSK complaints. Not needing additional help at home. HTN: Consistently taking medication. No adverse effects are noted. Reports no change in her diet, reports avoid sodium. No report of headache, chest pain, palpitations, dyspnea, peripheral edema, orthopnea, fatigue and PND. Last 14 Encounter BP Readings: Date: BP: 06/06/2022 157/78 01/04/2022 146/86 12/08/2021 148/80 07/20/2021 176/84 11/22/2020 124/64 03/23/2020 166/81 02/24/2020 186/81 12/12/2019 142/68 11/17/2019 132/70 10/17/2019 150/70 03/31/2019 104/59[TruBP average[ 12/10/2018 132/70 11/22/2018 130/62 10/28/2018 126/69[TruBP average[ Review of Systems Constitutional: Negative. Respiratory: Negative. Cardiovascular: Negative. Objective BP 157/78 Pulse 65 Resp 16 Wt 75.8 kg (167 lb) SpO2 98% BMI 28.22 kg/m? Physical Exam Vitals and nursing note reviewed. Constitutional: General: She is not in acute distress. Appearance: Normal appearance. She is not ill-appearing or diaphoretic. HENT: Head: Normocephalic and atraumatic. Eyes: Conjunctiva/sclera: Conjunctivae normal. Neck: Thyroid: No thyromegaly. Vascular: No JVD. Cardiovascular: Rate and Rhythm: Normal rate and regular rhythm. Heart sounds: Normal heart sounds. Pulmonary: Breath sounds: Normal breath sounds. Abdominal: General: Bowel sounds are normal. Palpations: Abdomen is soft. Musculoskeletal: Right lower leg: No edema. Left lower leg: No edema (scant left ankle swelling). Skin: General: Skin is warm and dry. Neurological: Mental Status: She is alert. Mental status is at baseline. ALLERGIES No Known Allergies Medications amLODIPine (NORVASC) 10 mg tabletTake 1 tablet by mouth once daily.Disp: 90 tabletRfl: 3 multivitamin tabletTake 1 tablet by mouth once daily.Disp: Rfl: Compression Knee HighsKNEE HIGH COMPRESSION STOCKINGS 20-30 MM. DX: EDEMADisp: 1 EachRfl: 1 DOCOSAHEXANOIC ACID/EPA (FISH OIL ORAL)Take 2 capsules by mouth once daily.Disp: Rfl: vitamin A-ascorbic acid-vitamin E-minerals (VISION) tabTake 1 tablet by mouth once daily.Disp: Rfl: PAST MEDICAL HISTORY Diagnosis Date Cervical cancer (HCC) s/p RadTX and chemo Depressive disorder, not elsewhere classified Generalized anxiety disorder Impaired fasting glucose Obesity Other and unspecified hyperlipidemia 04/10/2006 Unspecified essential hypertension Social History Tobacco Use Smoking status: Former Packs/day: 2.00 Years: 12.00 Pack years: 24.00 Types: Cigarettes Quit date: 09/24/1997 Years since quittin.7 Smokeless tobacco: Never Substance Use Topics Alcohol use: No Drug use: No ASSESSMENT/PLAN: 1. Malaise - ICD9: 780.79, ICD10: R53.81 (primary diagnosis) Notes did not feel her usual self last week, noted decreased appetite and general malaise. Did not seek care at last week. Now back to baseline. Labs today, treat as indicated. Consider cardiology follow up if indicated 2. Hyperlipidemia, mixed - ICD9: 272.2, ICD10: E78.2 Stable, currently controlled, continue to monitor. 3. Reactive depression - ICD9: 300.4, ICD10: F32.9 - CBC + DIFF - COMP METABOLIC PANEL 4. Impaired fasting glucose - ICD9: 790.21, ICD10: R73.01 - HGB A1C 5. Essential hypertension - ICD9: 401.9, ICD10: I10 Stable, currently controlled, continue to monitor. - TSH BLD - T3 FREE BLD - T4 FREE/FREE THYROX 6. Impaired memory - ICD9: 780.93, ICD10: R41.3 - CBC + DIFF - COMP METABOLIC PANEL - TSH BLD - VITAMIN B12 BLOOD - URINALYSIS, WITH MICROSCOPIC 7. Colon cancer screening - ICD9: V76.51, ICD10: Z12.11 - FECAL OCCULT BLOOD TEST 8. UTI symptoms - ICD9: 788.99, ICD10: R39.9 - URINALYSIS, WITH MICROSCOPIC Moody Hoover MD at last visit noted MMSE score consistent with moderate cognitive decline. Consider [facility] or referral for evaluation by geriatric specialist. In the meanwhile, adequate sleep, and staying active as discussed. Joselin Nichole APRN.CYLINDER MACHINE OPERATOR [facility] (more content not included)... [facility] 06-06-2022 History of Presen t illness Narrative SUBJECTIVE: FECAL OCCULT BLOOD Never done HPI Catia Pabon is a 82 year old female. PMH significant for ACTIVE PROBLEM LIST Reactive Depression Hyperlipidemia, Mixed Pain in Joint, Shoulder Region Impaired Fasting Glucose Essential Hypertension Eczema History of Cervical Cancer Primary Osteoarthritis of Left Knee Abnormal Pet Scan of Lung Obesity Since last here seen at ER for abdominal and back complaints: No Concern regarding dementia, daughter did not want to take to ER per phone encounter 05/26/2022. Today presents with her son Hudson, her POA. He notes she was not feeling well last week. Appetite was reduced, some malaise.Notes feeling back to baseline currently. Without report of abdominal or back complaints today. No MSK complaints. Not needing additional help at home. HTN: Consistently taking medication. No adverse effects are noted. Reports no change in her diet, reports avoid sodium. No report of headache, chest pain, palpitations, dyspnea, peripheral edema, orthopnea, fatigue and PND. Last 14 Encounter BP Readings: Date: BP: 06/06/2022 157/78 01/04/2022 146/86 12/08/2021 148/80 07/20/2021 176/84 11/22/2020 124/64 03/23/2020 166/81 02/24/2020 186/81 12/12/2019 142/68 11/17/2019 132/70 10/17/2019 150/70 03/31/2019 104/59[TruBP average[ 12/10/2018 132/70 11/22/2018 130/62 10/28/2018 126/69[TruBP average[ Review of Systems Constitutional: Negative. Respiratory: Negative. Cardiovascular: Negative. Objective BP 157/78 Pulse 65 Resp 16 Wt 75.8 kg (167 lb) SpO2 98% BMI 28.22 kg/m Physical Exam Vitals and nursing note reviewed. Constitutional: General: She is not in acute distress. Appearance: Normal appearance. She is not ill-appearing or diaphoretic. HENT: Head: Normocephalic and atraumatic. Eyes: Conjunctiva/sclera: Conjunctivae normal. Neck: Thyroid: No thyromegaly. Vascular: No JVD. Cardiovascular: Rate and Rhythm: Normal rate and regular rhythm. Heart sounds: Normal heart sounds. Pulmonary: Breath sounds: Normal breath sounds. Abdominal: General: Bowel sounds are normal. Palpations: Abdomen is soft. Musculoskeletal: Right lower leg: No edema. Left lower leg: No edema (scant left ankle swelling). Skin: General: Skin is warm and dry. Neurological: Mental Status: She is alert. Mental status is at baseline. ALLERGIES No Known Allergies Medications amLODIPine (NORVASC) 10 mg tablet^Take 1 tablet by mouth once daily.^Disp: 90 tablet^Rfl: 3 multivitamin tablet^Take 1 tablet by mouth once daily.^Disp: ^Rfl: Compression Knee Highs^KNEE HIGH COMPRESSION STOCKINGS 20-30 MM. DX: EDEMA^Disp: 1 Each^Rfl: 1 DOCOSAHEXANOIC ACID/EPA (FISH OIL ORAL)^Take 2 capsules by mouth once daily.^Disp: ^Rfl: vitamin A-ascorbic acid-vitamin E-minerals (VISION) tab^Take 1 tablet by mouth once daily.^Disp: ^Rfl: PAST MEDICAL HISTORY Diagnosis Date Cervical cancer (HCC) s/p RadTX and chemo Depressive disorder, not elsewhere classified Generalized anxiety disorder Impaired fasting glucose Obesity Other and unspecified hyperlipidemia 04/10/2006 Unspecified essential hypertension Social History Tobacco Use Smoking status: Former Packs/day: 2.00 Years: 12.00 Pack years: 24.00 Types: Cigarettes Quit date: 09/24/1997 Years since quittin.7 Smokeless tobacco: Never Substance Use Topics Alcohol use: No Drug use: No ASSESSMENT/PLAN: 1. Malaise - ICD9: 780.79, ICD10: R53.81 (primary diagnosis) Notes did not feel her usual self last week, noted decreased appetite and general malaise. Did not seek care at last week. Now back to baseline. Labs today, treat as indicated. Consider cardiology follow up if indicated 2. Hyperlipidemia, mixed - ICD9: 272.2, ICD10: E78.2 Stable, currently controlled, continue to monitor. 3. Reactive depression - ICD9: 300.4, ICD10: F32.9 - CBC + DIFF - COMP METABOLIC PANEL 4. Impaired fasting glucose - ICD9: 790.21, ICD10: R73.01 - HGB A1C 5. Essential hypertension - ICD9: 401.9, ICD10: I10 Stable, currently controlled, continue to monitor. - TSH BLD - T3 FREE BLD - T4 FREE/FREE THYROX 6. Impaired memory - ICD9: 780.93, ICD10: R41.3 - CBC + DIFF - COMP METABOLIC PANEL - TSH BLD - VITAMIN B12 BLOOD - URINALYSIS, WITH MICROSCOPIC 7. Colon cancer screening - ICD9: V76.51, ICD10: Z12.11 - FECAL OCCULT BLOOD TEST 8. UTI symptoms - ICD9: 788.99, ICD10: R39.9 - URINALYSIS, WITH MICROSCOPIC Moody Hoover MD at last visit noted MMSE score consistent with moderate cognitive decline. Consider [facility] evaluation or referral for evaluation by geriatric specialist. In the meanwhile, adequate sleep, and staying active as discussed. Joselin Nichole APRN.CYLINDER MACHINE OPERATOR Medical Decision Making: Problems: Moderate: 1+ chronic illnesses with change Data: Unique test(s) ordered: 3+ Medical Decision Making Level: 4 - Moderate documented in this encounter [facility] 05-26-2022 Miscellaneous Notes Formattin g of this note might be different from the original. Below noted Will follow up with patient after ER eval Daughter (Aleksandra) calls to report that patient has not been feeling well. Patient has been complaining of back pain that radiates to the abdomen at the level of the umbilicus. Reports that belly feels slightly firm and tender to touch. Reports urinating and bowel movements per patient normal. Patient not available to triage. Daughter reports she has dementia and is really concerned as it seems like she is declining rapidly. Recommended patient be evaluated in ED for the pain. Daughter reports she just wants her to have a complete physical. Notified her that patient needed to be evaluated for the pain and once the acute problem was handled we could go from there. Other concerns are rash on lower leg and a raised area on right upper arm that feels like a rolling knot. Aleksandra doesn't want to take her to the ED. Reports she might try [facility] for possible UTI. Notified Aleksandra that depending on the symptoms they would refer to ED as well. Strongly encouraged patient to be evaluated at ED. Aleksandra to call brother for transportation. Coretta Atkins RN documented in this encounter [facility] 2022 Miscellaneous Notes Left message for hudson to return call Last 5 Encounter BP Readings: Date: BP: 01/04/2022 146/86 12/08/2021 148/80 07/20/2021 176/84 11/22/2020 124/64 03/23/2020 166/81 Her BP was improving with subsequent BPs. Still averages over 130/80. See if she would be okay with increasing amlodipine dose to 10 mg or prefers to stay on same dose and work on healthy diet, regular exercise as able and modest weight loss ( 5 pounds over the next 6 months--figure out where to take out 100 calories every day) Please call patient's son Hudson @ [phone] - ok per patient. BP William Serial, Digital BP Readings, Taken 2 Minutes Apart, Average Readings: 142/78 Pulse: 71 1. 158/78 hr 72 2. 144/80 hr 72 3. 143/75 hr 71 4. 127/76 hr 68 5. 139/80 hr 72 Reason for blood pressure check - Last BP elevated Patient is: Taking medication as prescribed Yes Took medication today No If no, date medication last taken n/a Experiencing side effects No Recommendations Continue taking medications as prescribed, Follow recommended diet instructions, Continue recommended activity and Avoid excessive salt Follow-up Yes Pt has been identified by name and birthdate: Yes Allergies reviewed: Yes Latex allergy: no. Medication - prescribed and OTC reviewed and updated: Yes Do you need any prescription refills prior to your next visit: No Health Maintenance: Reviewed and up to date documented in this encounter [facility] 03-08-2022 Note HNO ID: [id number] Author: Low Vasquez Ma Service: ? Author Type: ? Type: Progress Notes Filed: 03/08/2022 6:25 PM Note Text: BP William Serial, Digital BP Readings, Taken 2 Minutes Apart, Average Readings: 142/78 Pulse: 71 1. 158/78 hr 72 2. 144/80 hr 72 3. 143/75 hr 71 4. 127/76 hr 68 5. 139/80 hr 72 Reason for blood pressure check - Last BP elevated Patient is: Taking medication as prescribed Yes Took medication today No If no, date medication last taken n/a Experiencing side effects No Recommendations Continue taking medications as prescribed, Follow recommended diet instructions, Continue recommended activity and Avoid excessive salt Follow-up Yes Pt has been identified by name and birthdate: Yes Allergies reviewed: Yes Latex allergy: no. Medication - prescribed and OTC reviewed and updated: Yes Do you need any prescription refills prior to your next visit: No Health Maintenance: Reviewed and up to date [facility] 03-08-2022 History of Presen t illness Narrative BP William Serial, Digital BP Readings, Taken 2 Minutes Apart, Average Readings: 142/78 Pulse: 71 1. 158/78 hr 72 2. 144/80 hr 72 3. 143/75 hr 71 4. 127/76 hr 68 5. 139/80 hr 72 Reason for blood pressure check - Last BP elevated Patient is: Taking medication as prescribed Yes Took medication today No If no, date medication last taken n/a Experiencing side effects No Recommendations Continue taking medications as prescribed, Follow recommended diet instructions, Continue recommended activity and Avoid excessive salt Follow-up Yes Pt has been identified by name and birthdate: Yes Allergies reviewed: Yes Latex allergy: no. Medication - prescribed and OTC reviewed and updated: Yes Do you need any prescription refills prior to your next visit: No Health Maintenance: Reviewed and up to date documented in this encounter [facility] 01-04-2022 Note HNO ID: [id number] Author: Moody Hoover MD Service: ? Author Type: Physician Type: Progress Notes Filed: 03/19/2022 7:24 PM Note Text: This note was created using Refund Exchangeriter. Subjective Catia Pabon is a 81 year old female. Patient presents with: F/U 6 months SUBJECTIVE: Catia Pabon is a 81 year old year old lady here today for 6 month follow up appointment for review of medical conditions. Not sure if taking BP meds daily. Not sure if sister reminding her is helping. Also leg issue [place] [id number]--zdrkikn pain sometimes since then. Worse when legs swell more. Compression socks helped with swelling before. Not ure about the pain. PAST MEDICAL HISTORY Diagnosis Date - Cervical cancer (HCC) s/p RadTX and chemo - Depressive disorder, not elsewhere classified - Generalized anxiety disorder - Impaired fasting glucose - Obesity - Other and unspecified hyperlipidemia 04/10/2006 - Unspecified essential hypertension Current Outpatient Medications Medication Sig - amLODIPine (NORVASC) 5 mg tablet Take 1 tablet by mouth once daily. - multivitamin tablet Take 1 tablet by mouth once daily. - vitamin A-ascorbic acid-vitamin E-minerals (VISION) tab Take 1 tablet by mouth once daily. - DOCOSAHEXANOIC ACID/EPA (FISH OIL ORAL) Take 2 capsules by mouth once daily. - Compression Knee Highs KNEE HIGH COMPRESSION STOCKINGS 20-30 MM. DX: EDEMA Current Facility-Administered Medications Medication Dose Route Frequency - perflutren lipid microspheres 1.3 mL in NaCl (PF) 0.9% 10 mL injection (DEFINITY) INTRAVENOUS DIRECTED PRN - sodium chloride 0.9 % (flush) 10 mL (BD POSIFLUSH) 10 mL INTRAVENOUS DIRECTED PRN Review of Systems Objective BP 162/88 Pulse 74 Wt 80.3 kg (177 lb) SpO2 98% BMI 29.91 kg/m? Last 5 Encounter Wt Readings: Date: Wt: 01/04/2022 80.3 kg (177 lb) 12/08/2021 81.3 kg (179 lb 3.2 oz) 07/20/2021 77.1 kg (170 lb) 11/22/2020 81.6 kg (180 lb) 03/23/2020 77.9 kg (171 lb 12.8 oz) No waist measurement recorded Estimated body mass index is 29.91 kg/m? as calculated from the following: Height as of 09/23/18: 163.8 cm (5' 4.5 ). Weight as of this encounter: 80.3 kg (177 lb). Last 5 Encounter BP Readings: Date: BP: 01/04/2022 162/88 12/08/2021 148/80 07/20/2021 176/84 11/22/2020 124/64 03/23/2020 166/81 01/04/22 1550 01/04/22 1648 BP: 162/88 146/86 Pulse: 74 SpO2: 98% Weight: 80.3 kg (177 lb) Physical Exam Constitutional: Appearance: Normal appearance. HENT: Head: Normocephalic. Eyes: Conjunctiva/sclera: Conjunctivae normal. Cardiovascular: Rate and Rhythm: Normal rate and regular rhythm. Heart sounds: Normal heart sounds. Pulmonary: Effort: Pulmonary effort is normal. Breath sounds: Normal breath sounds. Musculoskeletal: Right lower leg: Edema (trace) present. Left lower leg: Edema (trace) present. Skin: General: Skin is warm and dry. Neurological: General: No focal deficit present. Mental Status: She is alert and oriented to person, place, and time. Psychiatric: Attention and Perception: Attention and perception normal. Mood and Affect: Mood normal. Speech: Speech normal. Behavior: Behavior normal. Assessment and Plan ASSESSMENT/PLAN: 1. Essential hypertension - ICD9: 401.9, ICD10: I10 (primary diagnosis) - suboptimal control - factors affecting control of BP include poor adherence to medications and diet, being overweight and lack of exercise. - Continue current medication(s) - Recommended regular aerobic exercise. - Recommend home blood pressure monitoring, to bring results in on next visit - Work on measure to make sure taking meds routinely as prescribed. Further evaluation and treatment as indicated. - Goal of BP <130/80 - CBC - COMP METABOLIC PANEL 2. Cognitive deficits - ICD9: 294.9, ICD10: R41.89 Contributing to trouble taking BP meds routinely. Further evaluation and treatment as indicated. 3. Pain of left lower extremity - ICD9: 729.5, ICD10: M79.605 Discussed management of leg swelling that contributes to the pain. Further evaluation and treatment as indicated. PT or ortho eval as indicated 4. Hyperlipidemia, mixed - ICD9: 272.2, ICD10: E78.2 - to be determined upon return of lab results - Encouraged following a low fat, low cholesterol diet. - Discussed the benefits of regular aerobic exercise and weight loss. - Encouraged following a low carbohydrate, healthy oil intake diet. - LIPID PANEL BASIC 5. Encounter for long-term current use of medication - ICD9: V58.69, ICD10: Z79.899 - CBC - COMP METABOLIC PANEL Moody Hoover MD [facility] 01-04-2022 History of Presen t illness Narrative This note was created using Refund Exchangeriter. Subjective Catia Pabon is a 81 year old female. Patient presents with: F/U 6 months SUBJECTIVE: Catia Pabon is a 81 year old year old lady here today for 6 month follow up appointment for review of medical conditions. Not sure if taking BP meds daily. Not sure if sister reminding her is helping. Also [place] [id number]--[id number] pain sometimes since then. Worse when legs swell more. Compression socks helped with swelling before. Not ure about the pain. PAST MEDICAL HISTORY Diagnosis Date Cervical cancer (HCC) s/p RadTX and chemo Depressive disorder, not elsewhere classified Generalized anxiety disorder Impaired fasting glucose Obesity Other and unspecified hyperlipidemia 04/10/2006 Unspecified essential hypertension Current Outpatient Medications Medication Sig amLODIPine (NORVASC) 5 mg tablet Take 1 tablet by mouth once daily. multivitamin tablet Take 1 tablet by mouth once daily. vitamin A-ascorbic acid-vitamin E-minerals (VISION) tab Take 1 tablet by mouth once daily. DOCOSAHEXANOIC ACID/EPA (FISH OIL ORAL) Take 2 capsules by mouth once daily. Compression Knee Highs KNEE HIGH COMPRESSION STOCKINGS 20-30 MM. DX: EDEMA Current Facility-Administered Medications Medication Dose Route Frequency perflutren lipid microspheres 1.3 mL in NaCl (PF) 0.9% 10 mL injection (DEFINITY) INTRAVENOUS DIRECTED PRN sodium chloride 0.9 % (flush) 10 mL (BD POSIFLUSH) 10 mL INTRAVENOUS DIRECTED PRN Review of Systems Objective BP 162/88 Pulse 74 Wt 80.3 kg (177 lb) SpO2 98% BMI 29.91 kg/m Last 5 Encounter Wt Readings: Date: Wt: 01/04/2022 80.3 kg (177 lb) 12/08/2021 81.3 kg (179 lb 3.2 oz) 07/20/2021 77.1 kg (170 lb) 11/22/2020 81.6 kg (180 lb) 03/23/2020 77.9 kg (171 lb 12.8 oz) No waist measurement recorded Estimated body mass index is 29.91 kg/m as calculated from the following: Height as of 09/23/18: 163.8 cm (5' 4.5 ). Weight as of this encounter: 80.3 kg (177 lb). Last 5 Encounter BP Readings: Date: BP: 01/04/2022 162/88 12/08/2021 148/80 07/20/2021 176/84 11/22/2020 124/64 03/23/2020 166/81 01/04/22 1550 01/04/22 1648 BP: 162/88 146/86 Pulse: 74 SpO2: 98% Weight: 80.3 kg (177 lb) Physical Exam Constitutional: Appearance: Normal appearance. HENT: Head: Normocephalic. Eyes: Conjunctiva/sclera: Conjunctivae normal. Cardiovascular: Rate and Rhythm: Normal rate and regular rhythm. Heart sounds: Normal heart sounds. Pulmonary: Effort: Pulmonary effort is normal. Breath sounds: Normal breath sounds. Musculoskeletal: Right lower leg: Edema (trace) present. Left lower leg: Edema (trace) present. Skin: General: Skin is warm and dry. Neurological: General: No focal deficit present. Mental Status: She is alert and oriented to person, place, and time. Psychiatric: Attention and Perception: Attention and perception normal. Mood and Affect: Mood normal. Speech: Speech normal. Behavior: Behavior normal. Assessment and Plan ASSESSMENT/PLAN: 1. Essential hypertension - ICD9: 401.9, ICD10: I10 (primary diagnosis) - suboptimal control - factors affecting control of BP include poor adherence to medications and diet, being overweight and lack of exercise. - Continue current medication(s) - Recommended regular aerobic exercise. - Recommend home blood pressure monitoring, to bring results in on next visit - Work on measure to make sure taking meds routinely as prescribed. Further evaluation and treatment as indicated. - Goal of BP <130/80 - CBC - COMP METABOLIC PANEL 2. Cognitive deficits - ICD9: 294.9, ICD10: R41.89 Contributing to trouble taking BP meds routinely. Further evaluation and treatment as indicated. 3. Pain of left lower extremity - ICD9: 729.5, ICD10: M79.605 Discussed management of leg swelling that contributes to the pain. Further evaluation and treatment as indicated. PT or ortho eval as indicated 4. Hyperlipidemia, mixed - ICD9: 272.2, ICD10: E78.2 - to be determined upon return of lab results - Encouraged following a low fat, low cholesterol diet. - Discussed the benefits of regular aerobic exercise and weight loss. - Encouraged following a low carbohydrate, healthy oil intake diet. - LIPID PANEL BASIC 5. Encounter for long-term current use of medication - ICD9: V58.69, ICD10: Z79.899 - CBC - COMP METABOLIC PANEL Moody Hoover MD documented in this encounter [facility] 12-08-2021 Note HNO ID: [id number] Author: Shahnaz Becerril APRN.MAKEUP EDITOR Service: ? Author Type: Nurse Practitioner Type: Progress Notes Filed: 12/08/2021 2:19 PM Note Text: This note was created using Refund Exchangeriter. Subjective Catia Pabon is a 81 year old female who presents with scleral injection and concern for scratch on the right eye x 2 days. She denies any eye pain, vision changes, or trauma to the eye. No discharge from the eye. Review of Systems Eyes: Positive for redness. Negative for photophobia, pain, discharge, itching and visual disturbance. All other systems reviewed and are negative. Objective BP 148/80 Pulse 75 Temp 36.7 ?C (98 ?F) Resp 14 Wt 81.3 kg (179 lb 3.2 oz) SpO2 100% BMI 30.28 kg/m? PAST MEDICAL HISTORY Diagnosis Date - Cervical cancer (HCC) s/p RadTX and chemo - Depressive disorder, not elsewhere classified - Generalized anxiety disorder - Impaired fasting glucose - Obesity - Other and unspecified hyperlipidemia 04/10/2006 - Unspecified essential hypertension PAST SURGICAL HISTORY Procedure Laterality Date - PAST SURGICAL HISTORY OF 05/18/2014 Exam under anesthesia, exploratory laparotomy, modified radical abdominal hysterectomy with bilateral salpingo-oophorectomy, and resection of posterior vagina. ALLERGIES Patient has no known allergies. MEDICATIONS amLODIPine (NORVASC) 5 mg tablet Take 1 tablet by mouth once daily. multivitamin tablet Take 1 tablet by mouth once daily. vitamin A-ascorbic acid-vitamin E-minerals (VISION) tab Take 1 tablet by mouth once daily. Compression Knee Highs KNEE HIGH COMPRESSION STOCKINGS 20-30 MM. DX: EDEMA DOCOSAHEXANOIC ACID/EPA (FISH OIL ORAL) Take 2 capsules by mouth once daily. erythromycin (ROMYCIN) 5 mg/gram (0.5 %) ophthalmic ointment Use 1 application in the left eye twice daily for 7 days. FAMILY HISTORY Problem Relation Age of Onset - Emphysema Father - Diabetes Mother - Hypertension Mother - other (carotid artery narrowing) Sister 2 of 3 sisters - other (parkinsons) Sister 1 sister (the one with DM--has genetic mutation diagnosed by doctor in [place]) - Diabetes Sister - other (Cervix Cancer) Grandchild 25 Cervix Cancer and NSCLC - Cancer Son 50 prostate/kidney Social History Tobacco Use - Smoking status: Former Smoker Packs/day: 2.00 Years: 12.00 Pack years: 24.00 Types: Cigarettes Quit date: 09/24/1997 Years since quittin.2 - Smokeless tobacco: Never Used Substance Use Topics - Alcohol use: No - Drug use: No Physical Exam Vitals reviewed. Constitutional: General: She is not in acute distress. Appearance: Normal appearance. HENT: Head: Normocephalic and atraumatic. Eyes: General: Lids are normal. Vision grossly intact. Gaze aligned appropriately. Scleral icterus present. Right eye: No foreign body or discharge. Left eye: No foreign body or discharge. Extraocular Movements: Extraocular movements intact. Conjunctiva/sclera: Right eye: Right conjunctiva is injected. Hemorrhage present. No exudate. Left eye: Left conjunctiva is not injected. No exudate or hemorrhage. Pupils: Pupils are equal, round, and reactive to light. Comments: Fluorescein staining visualized corneal abrasions under black light. Skin: General: Skin is warm and dry. Capillary Refill: Capillary refill takes less than 2 seconds. Coloration: Skin is not jaundiced. Neurological: Mental Status: She is alert. Mental status is at baseline. Psychiatric: Mood and Affect: Mood normal. Assessment and Plan ASSESSMENT/PLAN: 1. Abrasion of right cornea, initial encounter - ICD9: 918.1, ICD10: S05.01XA - ERYTHROMYCIN 5 MG/GRAM (0.5 %) EYE OINTMENT Noah Strong RN - Follow-up with your PCP in 3-5 days if symptoms have not improved or sooner if symptoms worsen - Discussed red flags and need for immediate medical evaluation if any occur. - Discussed supportive care treatment with fluids, rest and analgesia. - Discussed expected course of illness TEACHING PROVIDER (Physician/PA/COSMETICS COUNTER MANAGER) NOTE OF PERSONAL INVOLVEMENT IN CARE: I have personally seen and examined the patient and performed the medical decision-making components. I have reviewed the Advanced Practice Registered Nurse (COSMETICS COUNTER MANAGER) Student's documentation and verified the findings in the note as written. Any additions or changes are noted in bold/italics. Signature: Shahnaz Becerril Date: 12/08/2021 Time: 2:18 PM [facility] documented as of this encounter (statuses as of 03/08/2022) [facility] History of Past illness Narrative* Problem Noted Date Resolved Date Cervical cancer 05/15/2013 04/21/2020 Elevated blood pressure read ing without diagnosis of hypertension 12/14/2005 12/26/2013 documented as of this encounter (statuses as of 03/14/2022) [facility] History of Past illness Narrative* Problem Noted Date Resolved Date Cervical cancer 05/15/2013 04/21/2020 Elevated blood pressure read ing without diagnosis of hypertension 12/14/2005 12/26/2013 documented as of this encounter (statuses as of 03/19/2022) [facility] History of Past illness Narrative* Problem Noted Date Resolved Date Cervical cancer 05/15/2013 04/21/2020 Elevated blood pressure read ing without diagnosis of hypertension 12/14/2005 12/26/2013 documented as of this encounter (statuses as of 05/30/2022) [facility] History of Past illness Narrative* Problem Noted Date Resolved Date Cervical cancer 05/15/2013 04/21/2020 Elevated blood pressure read ing without diagnosis of hypertension 12/14/2005 12/26/2013 documented as of this encounter (statuses as of 06/06/2022) [facility] History of Past illness Narrative* Problem Noted Date Resolved Date Cervical cancer 05/15/2013 04/21/2020 Elevated blood pressure read ing without diagnosis of hypertension 12/14/2005 12/26/2013 documented as of this encounter (statuses as of 08/25/2022) [facility] Diagnosis Essential hypertension- Primary Unspecified essential hypertension documented [facility] this [facility] Diagnosis Essential hypertension- Primary Unspecified essential hypertension Cognitive deficits Unspecified persistent mental disorders due to conditions classified elsewhere Pain of left lower extremity Hyperlipidemia, mixed Mixed hyperlipidemia Encounter for long-term current use of medication documented in this encounter [facility]* Diagnosis Malaise- Primary Other malaise and fatigue Hyperlipidemia, mixed Mixed hyperlipidemia Reactive depression Dysthymic disorder Impaired fasting glucose Essential hypertension Unspecified essential hypertension Impaired memory Memory loss Colon cancer screening Special screening for malignant neoplasms, colon UTI symptoms Other symptoms involving urinary system documented in this encounter [facility] Advance Directives No Advanced Directives Records FoundDocuments on File Type Date Recorded 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 Advance Directive(s) Summary Purpose Family History No Family History Records FoundNo Family History Records FoundNo Family History Records Found Additional Source Comments Source Comments (unrecognize d section and content) In the event this informatio n is protected by the Federal Confidentiality of Alcohol and Drug Abuse Patient Records regulations: The Federal rules restrict any use of the information to criminally investigate or prosecute any alcohol or drug abuse patient.[facility] the event this information is protected by the Federal Confidentiality of Alcohol and Drug Abuse Patient Records regulations: The Federal rules restrict any use of the information to criminally investigate or prosecute any alcohol or drug abuse patient.[facility] the event this information is protected by the Federal Confidentiality of Alcohol and Drug Abuse Patient Records regulations: The Federal rules restrict any use of the information to criminally investigate or prosecute any alcohol or drug abuse patient.[facility] the event this information is protected by the Federal Confidentiality of Alcohol and Drug Abuse Patient Records regulations: The Federal rules restrict any use of the information to criminally investigate or prosecute any alcohol or drug abuse patient.[facility] the event this information is protected by the Federal Confidentiality of Alcohol and Drug Abuse Patient Records regulations: The Federal rules restrict any use of the information to criminally investigate or prosecute any alcohol or drug abuse patient.[facility] the event this information is protected by the Federal Confidentiality of Alcohol and Drug Abuse Patient Records regulations: The Federal rules restrict any use of the information to criminally investigate or prosecute any alcohol or drug abuse patient.[facility] Reason for Visit (unrecogniz ed section and content) Reason Comments F/U 6 months Reason Comments Patient Update Appointment Reason Comments Follow Up Reason Comments Verifying Orders Care Teams (unrecognized sec tion and content) 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 Start Date End Date Moody Hoover MD [facility] [place] [address] PCP - General 11/18/04 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 Start Date End Date Moody Hoover MD [facility] [place] [address] PCP - General 11/18/04 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 Start Date End Date Moody Hoover MD [address] [place] [id number] PCP - General 11/18/04 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 Start Date End Date Moody Hoover MD [address] [place] [id number] PCP - General 11/18/04 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 This clinical summary was aggregated from multiple sources. Caution should be exercised in using it in the provision of clinical care. This summary normalizes information from multiple sources, and as a consequence, information in this document may materially change the coding, format and clinical context of patient data. In addition, data may be omitted in some cases. CLINICAL DECISIONS SHOULD BE BASED ON THE PRIMARY CLINICAL RECORDS. [facility] [employer] [facility]. provides no warranty or guarantee of the accuracy or completeness of information in this document.
[2023-09-11 09:19] LABS: Absolute Lymphocyte Count 0.94 X10^3/uL (0.83-4.51); Absolute Neutrophil Count 2.5 X10^3/uL (2.0-7.7); Basophil# 0.02 X10^3/uL; Basophil% 0.5 % (0-1); Eosinophil# 0.11 X10^3/uL; Eosinophils% 2.6 % (0-5); Hematocrit 39.1 % (37-47); Hemoglobin 12.1 g/dL (12.0-15.0); Lymphocyte # 0.94 X10^3/ul (0.83-4.51); Lymphocyte % 22.6 % (19-41); Mean Corp Hgb Conc 30.9 g/dL (32-36); Mean Corpuscular Hgb 30.2 pg (27.0-32.0); Mean Corpuscular Volume 97.5 fL (81-99); Monocyte# 0.56 X10^3/uL; Monocyte% 13.5 % (0-10); NRBC Flagged by Analyzer 0 % (0-5); Neutrophil # 2.52 X10^3/uL (2.7-7.7); Neutrophil % 60.6 % (47-70); Platelet Count 183 K/mm3 (150-450); RBC Distribution Width CV 13.9 % (11.6-14.6); RBC Distribution Width SD 49.3 fl (35.1-43.9); Red Blood Count 4.01 M/mm3 (4.2-5.4); White Blood Count 4.2 K/mm3 (4.4-11.0)
[2023-09-11 09:31] LABS: Anion Gap 3 (5-15); BUN 22 mg/dL (7-18); BUN/Creat Ratio 30.9 RATIO (10-20); Calcium,Total 9.4 mg/dL (8.5-10.1); Chloride 109 mmol/L (98-107); Creatinine, Serum 0.71 mg/dL (0.55-1.02); EST Glomerular Filtration Rate 84 mL/min (>60); Est Glom Filt Rate - Afr Amer 101 mL/min (>60); Glucose 86 mg/dL (74-106); Potassium 4.4 mmol/L (3.5-5.1); Sodium Level 140 mmol/L (136-145)
== END ==
LOC: OLS.WHLCAR 05:00
PROVIDERS: PCP Internal Medicine; Visit Provider Internal Medicine
DX: G30.9 Alzheimer's disease, unspecified (principal); I10 Essential (primary) hypertension
CPT/HCPCS: 36415; 80048; 85025

== ENCOUNTER → 2023-09-18 | Outpatient (REF) | payer MEDICARE, MEDICAID, SELFPAY ==
[2023-09-18 08:18] LABS: Valproic Acid (Depakene) Level 32 ug/mL (50-100)
== END ==
LOC: OLS.WHLCAR 05:40
PROVIDERS: PCP Internal Medicine; Visit Provider Internal Medicine
DX: Z79.899 Other long term (current) drug therapy (principal)
CPT/HCPCS: 36415; 80164

== ENCOUNTER → 2023-10-09 | Outpatient (REF) | payer MEDICARE, MEDICAID, SELFPAY ==
[2023-10-09 09:18] LABS: Absolute Lymphocyte Count 0.99 X10^3/uL (0.83-4.51); Absolute Neutrophil Count 2.3 X10^3/uL (2.0-7.7); Basophil# 0.02 X10^3/uL; Basophil% 0.5 % (0-1); Eosinophil# 0.12 X10^3/uL; Eosinophils% 3.1 % (0-5); Hematocrit 39.6 % (37-47); Hemoglobin 12.2 g/dL (12.0-15.0); Lymphocyte # 0.99 X10^3/ul (0.83-4.51); Lymphocyte % 25.7 % (19-41); Mean Corp Hgb Conc 30.8 g/dL (32-36); Mean Corpuscular Volume 97.5 fL (81-99); Mean Platelet Vol. 9.9 fl (6.2-12.0); Monocyte# 0.45 X10^3/uL; Monocyte% 11.7 % (0-10); NRBC Flagged by Analyzer 0 % (0-5); Neutrophil # 2.26 X10^3/uL (2.7-7.7); Neutrophil % 58.7 % (47-70); Platelet Count 182 K/mm3 (150-450); RBC Distribution Width SD 50.4 fl (35.1-43.9); Red Blood Count 4.06 M/mm3 (4.2-5.4); White Blood Count 3.9 K/mm3 (4.4-11.0)
[2023-10-09 09:38] LABS: Anion Gap 6 (5-15); BUN 32 mg/dL (7-18); BUN/Creat Ratio 34.6 RATIO (10-20); Calcium,Total 9.5 mg/dL (8.5-10.1); Chloride 109 mmol/L (98-107); Creatinine, Serum 0.93 mg/dL (0.55-1.02); EST Glomerular Filtration Rate 62 mL/min (>60); Est Glom Filt Rate - Afr Amer 75 mL/min (>60); Glucose 119 mg/dL (74-106); Potassium 4.4 mmol/L (3.5-5.1); Sodium Level 140 mmol/L (136-145)
== END ==
LOC: OLS.WHLCAR 05:00
PROVIDERS: PCP Internal Medicine; Visit Provider Internal Medicine
DX: G30.9 Alzheimer's disease, unspecified (principal); I10 Essential (primary) hypertension; R45.1 Restlessness and agitation; F41.9 Anxiety disorder, unspecified
CPT/HCPCS: 36415; 80048; 85025

== ENCOUNTER → 2023-11-05 | Outpatient (REF) | payer MEDICARE, MEDICAID, SELFPAY ==
[2023-11-05 08:25] LABS: Absolute Lymphocyte Count 0.99 X10^3/uL (0.83-4.51); Absolute Neutrophil Count 2.3 X10^3/uL (2.0-7.7); Basophil# 0.02 X10^3/uL; Basophil% 0.5 % (0-1); Eosinophil# 0.14 X10^3/uL; Eosinophils% 3.5 % (0-5); Hematocrit 37.1 % (37-47); Hemoglobin 11.7 g/dL (12.0-15.0); Lymphocyte # 0.99 X10^3/ul (0.83-4.51); Mean Corp Hgb Conc 31.5 g/dL (32-36); Mean Corpuscular Volume 98.1 fL (81-99); Mean Platelet Vol. 10.1 fl (6.2-12.0); Monocyte# 0.54 X10^3/uL; Monocyte% 13.6 % (0-10); NRBC Flagged by Analyzer 0 % (0-5); Neutrophil # 2.26 X10^3/uL (2.7-7.7); Neutrophil % 57.1 % (47-70); Platelet Count 189 K/mm3 (150-450); RBC Distribution Width CV 14.1 % (11.6-14.6); RBC Distribution Width SD 50.7 fl (35.1-43.9); Red Blood Count 3.78 M/mm3 (4.2-5.4)
[2023-11-05 09:29] LABS: Valproic Acid (Depakene) Level 30 ug/mL (50-100)
[2023-11-05 10:32] LABS: ALB/GLOB Ratio 0.8 RATIO (0.9-2.4); AST(SGOT) 30 U/L (15-37); Alanine Aminotransfer ALT/SGPT 27 U/L (13-56); Alkaline Phosphatase 62 U/L (45-117); Anion Gap 5 (5-15); BUN 24 mg/dL (7-18); BUN/Creat Ratio 33.6 RATIO (10-20); Calcium,Total 9.3 mg/dL (8.5-10.1); Chloride 109 mmol/L (98-107); Creatinine, Serum 0.72 mg/dL (0.55-1.02); EST Glomerular Filtration Rate 83 mL/min (>60); Est Glom Filt Rate - Afr Amer 100 mL/min (>60); Globulin 3.7 g/dL (2.2-4.2); Glucose 82 mg/dL (74-106); Potassium 4.5 mmol/L (3.5-5.1); Protein, Total 6.7 g/dL (6.4-8.2); Sodium Level 141 mmol/L (136-145)
== END ==
LOC: OLS.WHLCAR 05:00
PROVIDERS: PCP Internal Medicine; Visit Provider Internal Medicine
DX: Z79.899 Other long term (current) drug therapy (principal)
CPT/HCPCS: 36415; 80053; 80164; 85025

== ENCOUNTER → 2023-11-13 | Outpatient (REF) | payer MEDICARE, MEDICAID, SELFPAY ==
--- OUTSIDE RECORDS SUMMARY | 2023-11-13 04:16 | XMS RPT_ITS | CCD ---
Author Name Unknown Address [address] [place] [address] Organization [facility] Care Team Providers Care Retaining Room Cutter Name Role Phone Moody Hoover MD Primary [...] Primary Care Unavailable JOSELIN NICHOLE Attending Unavailable TALAMPLARON MOODY D Primary Care Unavailable JOSELIN NICHOLE [...] (1 source) Patient encounter status; Translations: [Other senior care (current) drug therapy] Episodic Other connective tissue [...] 06-11-2008 Episodic Other aftercare (1 source) Other senior care (current) drug therapy; Translations: [Encounter for long-term [...] Diastolic blood pressure 78 mm[Hg] Joselin Nichole PREPRINT ANALYST.BATH MIX OPERATOR Work Phone: [facility] 06-06-2022 15:10-0400 Heart rate 65 /min Joselin Nichole PREPRINT ANALYST.BATH MIX OPERATOR Work Phone: [facility] 06-06-2022 15:10-0400 Systolic blood pressure 157 mm[Hg] Joselin Nichole PREPRINT ANALYST.BATH MIX OPERATOR Work Phone: [facility] 06-06-2022 14:57-0400 Body weight 75.75 kg Joselin Nichole PREPRINT ANALYST.BATH MIX OPERATOR Work Phone: [facility] 06-06-2022 14:57-0400 Respiratory rate 16 /min Joselin Nichole PREPRINT ANALYST.BATH MIX OPERATOR Work Phone: [facility] 06-06-2022 14:57-0400 SaO2% (BldA) [Mass fraction] 98 % Joselin Nichole PREPRINT ANALYST.BATH MIX OPERATOR Work Phone: [facility] 01-04-2022 16:48-0400 Diastolic blood pressure 86 mm[Hg] Moody Hoover MD Work Phone: [facility] 01-04-2022 16:48-0400 Systolic blood pressure 146 mm[Hg] Moody Hoover MD Work Phone: [facility] 01-04-2022 15:50-0400 Body weight 80.29 kg Moody Hoover MD Work Phone: [facility] 01-04-2022 15:50-0400 Heart rate 74 /min Moody Hoover MD Work Phone: [facility] 01-04-2022 15:50-0400 SaO2% (BldA) [Mass fraction] 98 % Moody Hoover MD Work Phone: [facility] Encounters Encounter Date Encounter Type Care Provider Facility Start: 08-23-2022 Telephone encounter Moody castillo MD Work Phone: [facility] Plan of Treatment Date Care Activity Detail Author Start: 06-03-2028 Urine microalbumin profile DTA P,TDAP,TD (2 - Td or Tdap) [facility] Start: 06-10-2025 DIABETES SCREEN DIABETES SCREEN [facility] Start: 11-23-2023 DIABETES SCREEN DIABETES SCREEN [facility] Start: 03-23-2023 Influenza vaccination INFLUENZA (#1) [facility] Immunizations Immunization Date Immunization Notes Care Provider Abel sin 10-17-2019 influenza, high dose seasonal, preservative-free Alexandrea Older PREPRINT ANALYST.DIORAMIST Work Phone: [facility] 09-02-2018 influenza, high dose seasonal, preservative-free Alexandrea Older PREPRINT ANALYST.DIORAMIST Work Phone: [facility] 06-03-2018 tetanus toxoid, redu john diphtheria toxoid, and acellular pertussis vaccine, adsorbed Alexandrea Older PREPRINT ANALYST.DIORAMIST Work Phone: [facility] 07-26-2017 influenza, high dose seasonal, preservative-free Alexandrea Older PREPRINT ANALYST.DIORAMIST Work Phone: [facility] 05-24-2015 pneumococcal conjuga te vaccine, 13 valent Alexandrea Older PREPRINT ANALYST.DIORAMIST Work Phone: [facility] 06-23-2014 influenza, seasonal, injectable Alexandrea Older PREPRINT ANALYST.DIORAMIST Work Phone: [facility] 09-09-2012 influenza virus vacc ine, unspecified formulation Alexandrea Older PREPRINT ANALYST.DIORAMIST Work Phone: [facility] 07-07-2009 influenza virus vacc ine, unspecified formulation Alexandrea Older PREPRINT ANALYST.DIORAMIST Work Phone: [facility] 10-11-2006 pneumococcal polysaccharide vaccine, 23 valent Alexandrea Older PREPRINT ANALYST.DIORAMIST Work Phone: [facility] Work Phone: 07-18-2006 influenza virus vacc ine, unspecified formulation Alexandrea Older PREPRINT ANALYST.DIORAMIST Work Phone: [facility] Work Phone: Payers Date Payer Category Payer Medicare MMO MEDICARE MMO MEDADVANTAGE O [id number] 2017-Present [phone] [address] [place] [id number] [facility] [id number] 2017 Medicare MMO MEDICARE MMO MEDADVANTAGE O [id number] 2017-Present [phone] [address] [place] [address] [facility] [id number] 2017 Unknown [id number] Social History Date Type Detail Facility Start: 06-13-2013 End: 06-06-2022 Tobacco smoking status NHIS Ex-smoker [facility] Work Phone: End: 09-24-1997 History of tobacco use Current smoker [facility] End: 09-24-1997 History of tobacco use Cigarette Smoker [facility] Start: 01-04-2022 End: 06-10-2022 Alcohol intake Current non-drinker of alcohol (finding) [facility] Start: 1940 Sex Assigned At Not on file C [facility] Start: 12-25-2021 End: 06-06-2022 Exposure to SARS-CoV-2 (event) Not sure [facility] Start: 06-13-2013 End: 06-06-2022 Cigarettes smoked current (pack per day) - Reported 2 [facility] Start: 06-13-2013 End: 06-06-2022 Tobacco use and exposure Smokeless tobacco non-user [facility] Clinical Notes 05-15-2013 to 08-25-2022 Telephone Encounter - Naima Bales LPN - 08/25/2022 2:30 PM ESTTelephone Encounter - Maricruz Tidwell LPN - 08/23/2022 1:45 PM Forest Nichole APRN.BATH MIX OPERATOR - 06/06/2022 2:40 PM EDT Note Date & Type Note Facility 08-25-2022 Miscellaneous Notes Formattin g of this note might be different from the original. Led the facility and pt is now following with the provider at the facility Dr. Lisa. Yulissa from [facility] called to verify med orders. Yulissa was notified of pt's med list on file here. She is going to fax a standing order for MOM & Tylenol. Maricruz Tidwell LPN documented in this encounter [facility] 06-10-2022 Note HNO ID: [id number] Author: Tessa Solorzano RN Service: Emergency Medicine Author Type: Registered Nurse Type: ED Notes Filed: 06/10/2022 5:31 PM Note Text: EKG in progress [facility] 06-06-2022 Note HNO ID: [id number] Author: Joselin Nichole APRN.BATH MIX OPERATOR Service: ? Author Type: Nurse Specialist [...] and staying active as discussed. Joselin Nichole APRN.BATH MIX OPERATOR Medical Decisi (more content not included)... [facility] 06-06-2022 History of Presen t illness Narrative [...] and staying active as discussed. Joselin Nichole APRN.BATH MIX OPERATOR Medical Decision Making: Problems: Moderate: 1+ chronic illnesses with change Data: Unique test(s) ordered: 3+ Medical Decision Making Level: 4 - Moderate documented in this encounter [facility] 05-26-2022 Miscellaneous Notes Formattin g of this [...] Coretta Atkins RN documented in this encounter [facility] 2022 Miscellaneous Notes Left message for hudson [...] day) Please call patient's son Hudson @ [phone] - ok per patient. BP William Serial, [...] up to date documented in this encounter [facility] 03-08-2022 Note HNO ID: [id number] Author: Low Vasquez Ma Service: ? Author [...] Health Maintenance: Reviewed and up to date [facility] 03-08-2022 History of Presen t illness Narrative [...] up to date documented in this encounter [facility] 01-04-2022 Note HNO ID: [id number] Author: Moody Hoover MD Service: ? Author Type: Physician Type: Progress Notes Filed: 03/19/2022 7:24 PM Note Text: This note was created using RAREFORMriter. Subjective Catia Pabon is a 81 year [...] [place] [address]--tovswvs pain sometimes since then. Worse when legs [...] - COMP METABOLIC PANEL Moody Hoover MD [facility] 01-04-2022 History of Presen t illness Narrative This note was created using RAREFORMriter. Subjective Catia Pabon is a 81 year [...] [place] [address]--bklapwf pain sometimes since then. Worse when legs [...] Moody Hoover MD documented in this encounter [facility] 12-08-2021 Note HNO ID: [id number] Author: Shahnaz Becerril APRN.DIORAMIST Service: ? Author Type: Nurse Practitioner Type: Progress Notes Filed: 12/08/2021 2:19 PM Note Text: This note was created using RAREFORMriter. Subjective Catia Pabon is a 81 year [...] DM--has genetic mutation diagnosed by doctor in [place]) - Diabetes Sister - other (Cervix Cancer) [...] Discussed expected course of illness TEACHING PROVIDER (Physician/PA/PREPRINT ANALYST) NOTE OF PERSONAL INVOLVEMENT IN CARE: I have personally seen and examined the patient and performed the medical decision-making components. I have reviewed the Advanced Practice Registered Nurse (PREPRINT ANALYST) Student's documentation and verified the findings in the note as written. Any additions or changes are noted in bold/italics. Signature: Shahnaz Becerril Date: 12/08/2021 Time: 2:18 PM [facility] documented as of this encounter (statuses as of 03/08/2022) [facility] History of Past illness Narrative* Problem Noted Date Resolved Date Cervical cancer 05/15/2013 04/21/2020 Elevated blood pressure read ing without diagnosis of hypertension 12/14/2005 12/26/2013 documented as of this encounter (statuses as of 03/14/2022) [facility] History of Past illness Narrative* Problem Noted Date Resolved Date Cervical cancer 05/15/2013 04/21/2020 Elevated blood pressure read ing without diagnosis of hypertension 12/14/2005 12/26/2013 documented as of this encounter (statuses as of 03/19/2022) [facility] History of Past illness Narrative* Problem Noted Date Resolved Date Cervical cancer 05/15/2013 04/21/2020 Elevated blood pressure read ing without diagnosis of hypertension 12/14/2005 12/26/2013 documented as of this encounter (statuses as of 05/30/2022) [facility] History of Past illness Narrative* Problem Noted Date Resolved Date Cervical cancer 05/15/2013 04/21/2020 Elevated blood pressure read ing without diagnosis of hypertension 12/14/2005 12/26/2013 documented as of this encounter (statuses as of 06/06/2022) [facility] History of Past illness Narrative* Problem Noted Date Resolved Date Cervical cancer 05/15/2013 04/21/2020 Elevated blood pressure read ing without diagnosis of hypertension 12/14/2005 12/26/2013 documented as of this encounter (statuses as of 08/25/2022) [facility] Diagnosis Essential hypertension- Primary Unspecified essential hypertension [facility] Diagnosis Essential hypertension- Primary Unspecified essential hypertension Cognitive deficits Unspecified persistent mental disorders due to conditions classified elsewhere Pain of left lower extremity Hyperlipidemia, mixed Mixed hyperlipidemia Encounter for long-term current use of medication documented [facility] encounter [facility]* Diagnosis Malaise- Primary Other malaise and fatigue Hyperlipidemia, mixed Mixed hyperlipidemia Reactive depression Dysthymic disorder Impaired fasting glucose Essential hypertension Unspecified essential hypertension Impaired memory Memory loss Colon cancer screening Special screening for malignant neoplasms, colon UTI symptoms Other symptoms involving urinary system documented in this encounter [facility] Advance Directives No Advanced Directives Records FoundDocuments on File Type Date Recorded Patient Superintendent Pier Expl anation Advance Directive(s) Summary Purpose Family [...] or prosecute any alcohol or drug abuse patient.[facility] the event this information is protected by the Federal Confidentiality of Alcohol and Drug Abuse Patient Records regulations: The Federal rules restrict any use of the information to criminally investigate or prosecute any alcohol or drug abuse patient.[facility] the event this information is protected by the Federal Confidentiality of Alcohol and Drug Abuse Patient Records regulations: The Federal rules restrict any use of the information to criminally investigate or prosecute any alcohol or drug abuse patient.[facility] the event this information is protected by the Federal Confidentiality of Alcohol and Drug Abuse Patient Records regulations: The Federal rules restrict any use of the information to criminally investigate or prosecute any alcohol or drug abuse patient.[facility] HospitalIn the event this information is protected by the Federal Confidentiality of Alcohol and Drug Abuse Patient Records regulations: The Federal rules restrict any use of the information to criminally investigate or prosecute any alcohol or drug abuse patient.[facility] Hospital[facility] the event this information is protected by the Federal Confidentiality of Alcohol and Drug Abuse Patient Records regulations: The Federal rules restrict any use of the information to criminally investigate or prosecute any alcohol or drug abuse patient.[facility] Reason for Visit (unrecogniz ed section and content) Reason Comments F/U 6 months Reason Comments Patient Update Appointment Reason Comments Follow Up Reason Comments Verifying Orders Care Teams (unrecognized sec tion and content) Retaining Room Cutter Relationship Specialty Start Date End Date Moody Hoover MD [facility] [place] [address] PCP - General 11/18/04 Retaining Room Cutter Relationship Specialty Start Date End Date Moody Hoover MD [facility] [place] [address] PCP - General 11/18/04 Retaining Room Cutter Relationship Specialty Start Date End Date Moody Hoover MD [address] [place] [id number] PCP - General 11/18/04 Retaining Room Cutter Relationship Specialty Start Date End Date Moody Hoover MD [address] [place] [id number] PCP - General 11/18/04 Retaining Room Cutter Relationship Specialty Start Date End Date Moody Hoover MD [facility] [place] [address] PCP - General 11/18/04 08/24/22 INFORMATION SOURCE (unrecogn ized section and content) DATE CREATED AUTHOR AUTHOR'S ORGANIZ ATION 08/26/2022 [facility] DATE CREATED AUTHOR AUTHOR'S ORGANIZ ATION 01/19/2023 [facility] FOR RECORDS PERTAINING TO PATIENTS WHO ARE [...] BE BASED ON THE PRIMARY CLINICAL RECORDS. [facility] [employer] [facility]. provides no warranty or guarantee of the accuracy or completeness of information in this document.
[2023-11-13 09:30] LABS: Absolute Lymphocyte Count 0.72 X10^3/uL (0.83-4.51); Absolute Neutrophil Count 1.8 X10^3/uL (2.0-7.7); Basophil# 0.01 X10^3/uL; Basophil% 0.3 % (0-1); Eosinophil# 0.12 X10^3/uL; Eosinophils% 3.8 % (0-5); Hematocrit 39.3 % (37-47); Hemoglobin 12.2 g/dL (12.0-15.0); Lymphocyte # 0.72 X10^3/ul (0.83-4.51); Lymphocyte % 22.9 % (19-41); Mean Corpuscular Volume 99.7 fL (81-99); Mean Platelet Vol. 9.6 fl (6.2-12.0); Monocyte# 0.51 X10^3/uL; Monocyte% 16.2 % (0-10); NRBC Flagged by Analyzer 0 % (0-5); Neutrophil # 1.77 X10^3/uL (2.7-7.7); Neutrophil % 56.5 % (47-70); Platelet Count 180 K/mm3 (150-450); RBC Distribution Width CV 13.7 % (11.6-14.6); RBC Distribution Width SD 50.6 fl (35.1-43.9); Red Blood Count 3.94 M/mm3 (4.2-5.4); White Blood Count 3.1 K/mm3 (4.4-11.0)
[2023-11-13 09:42] LABS: Anion Gap 5 (5-15); BUN 22 mg/dL (7-18); Chloride 112 mmol/L (98-107); Creatinine, Serum 0.73 mg/dL (0.55-1.02); EST Glomerular Filtration Rate 81 mL/min (>60); Est Glom Filt Rate - Afr Amer 97 mL/min (>60); Glucose 80 mg/dL (74-106); Potassium 4.2 mmol/L (3.5-5.1); Sodium Level 144 mmol/L (136-145)
== END ==
LOC: OLS.WHLCAR 05:00
PROVIDERS: PCP Internal Medicine; Visit Provider Internal Medicine
DX: G30.9 Alzheimer's disease, unspecified (principal); F41.9 Anxiety disorder, unspecified; I10 Essential (primary) hypertension
CPT/HCPCS: 36415; 80048; 85025

== ENCOUNTER → 2023-12-07 | Outpatient (REF) | payer MEDICARE, MEDICAID, SELFPAY ==
[2023-12-07 09:22] LABS: Valproic Acid (Depakene) Level 28 ug/mL (50-100)
== END ==
LOC: OLS.WHLCAR 05:00
PROVIDERS: PCP Internal Medicine; Visit Provider Internal Medicine
DX: Z79.899 Other long term (current) drug therapy (principal)
CPT/HCPCS: 36415; 80164

== ENCOUNTER → 2023-12-11 | Outpatient (REF) | payer MEDICARE, MEDICAID, SELFPAY ==
[2023-12-11 08:02] LABS: Absolute Lymphocyte Count 1.12 X10^3/uL (0.83-4.51); Absolute Neutrophil Count 1.8 X10^3/uL (2.0-7.7); Basophil# 0.01 X10^3/uL; Basophil% 0.3 % (0-1); Eosinophil# 0.13 X10^3/uL; Eosinophils% 3.6 % (0-5); Hematocrit 36.4 % (37-47); Hemoglobin 11.2 g/dL (12.0-15.0); Lymphocyte # 1.12 X10^3/ul (0.83-4.51); Lymphocyte % 30.8 % (19-41); Mean Corp Hgb Conc 30.8 g/dL (32-36); Mean Corpuscular Hgb 29.8 pg (27.0-32.0); Mean Corpuscular Volume 96.8 fL (81-99); Mean Platelet Vol. 10.2 fl (6.2-12.0); Monocyte# 0.52 X10^3/uL; Monocyte% 14.3 % (0-10); NRBC Flagged by Analyzer 0 % (0-5); Neutrophil # 1.83 X10^3/uL (2.7-7.7); Neutrophil % 50.2 % (47-70); Platelet Count 180 K/mm3 (150-450); RBC Distribution Width CV 13.4 % (11.6-14.6); RBC Distribution Width SD 47.7 fl (35.1-43.9); Red Blood Count 3.76 M/mm3 (4.2-5.4); White Blood Count 3.6 K/mm3 (4.4-11.0)
[2023-12-11 08:31] LABS: Anion Gap 4 (5-15); BUN 21 mg/dL (7-18); BUN/Creat Ratio 29.6 RATIO (10-20); Calcium,Total 9.2 mg/dL (8.5-10.1); Chloride 108 mmol/L (98-107); Creatinine, Serum 0.71 mg/dL (0.55-1.02); EST Glomerular Filtration Rate 84 mL/min (>60); Est Glom Filt Rate - Afr Amer 101 mL/min (>60); Glucose 88 mg/dL (74-106); Potassium 4.3 mmol/L (3.5-5.1); Sodium Level 140 mmol/L (136-145)
== END ==
LOC: OLS.WHLCAR 05:00
PROVIDERS: PCP Internal Medicine; Visit Provider Internal Medicine
DX: G30.9 Alzheimer's disease, unspecified (principal); I10 Essential (primary) hypertension; F41.9 Anxiety disorder, unspecified
CPT/HCPCS: 36415; 80048; 85025

== ENCOUNTER → 2024-01-08 | Outpatient (REF) | payer MEDICARE, MEDICAID, SELFPAY ==
[2024-01-08 08:08] LABS: Absolute Lymphocyte Count 0.97 X10^3/uL (0.83-4.51); Absolute Neutrophil Count 1.5 X10^3/uL (2.0-7.7); Basophil# 0.01 X10^3/uL; Basophil% 0.3 % (0-1); Eosinophil# 0.08 X10^3/uL; Eosinophils% 2.5 % (0-5); Hemoglobin 11.8 g/dL (12.0-15.0); Lymphocyte # 0.97 X10^3/ul (0.83-4.51); Lymphocyte % 30.6 % (19-41); Mean Corp Hgb Conc 31.1 g/dL (32-36); Mean Corpuscular Hgb 30.2 pg (27.0-32.0); Mean Corpuscular Volume 97.2 fL (81-99); Mean Platelet Vol. 10.3 fl (6.2-12.0); Monocyte# 0.63 X10^3/uL; Monocyte% 19.9 % (0-10); NRBC Flagged by Analyzer 0 % (0-5); Neutrophil # 1.46 X10^3/uL (2.7-7.7); Neutrophil % 46.1 % (47-70); Platelet Count 172 K/mm3 (150-450); RBC Distribution Width CV 13.9 % (11.6-14.6); RBC Distribution Width SD 49.2 fl (35.1-43.9); Red Blood Count 3.91 M/mm3 (4.2-5.4); White Blood Count 3.2 K/mm3 (4.4-11.0)
[2024-01-08 08:29] LABS: Anion Gap 4 (5-15); BUN 25 mg/dL (7-18); BUN/Creat Ratio 31.2 RATIO (10-20); Calcium,Total 9.1 mg/dL (8.5-10.1); Chloride 108 mmol/L (98-107); EST Glomerular Filtration Rate 73 mL/min (>60); Est Glom Filt Rate - Afr Amer 88 mL/min (>60); Glucose 84 mg/dL (74-106); Potassium 4.3 mmol/L (3.5-5.1); Sodium Level 141 mmol/L (136-145)
== END ==
LOC: OLS.WHLCAR 05:00
PROVIDERS: PCP Internal Medicine; Visit Provider Internal Medicine
DX: G30.9 Alzheimer's disease, unspecified (principal); F41.9 Anxiety disorder, unspecified; I10 Essential (primary) hypertension
CPT/HCPCS: 36415; 80048; 85025

== ENCOUNTER → 2024-02-12 | Outpatient (REF) | payer MEDICARE, MEDICAID, SELFPAY ==
[2024-02-12 07:53] LABS: Absolute Lymphocyte Count 0.99 X10^3/uL (0.83-4.51); Basophil# 0.01 X10^3/uL; Basophil% 0.3 % (0-1); Eosinophil# 0.12 X10^3/uL; Eosinophils% 3.2 % (0-5); Hematocrit 36.1 % (37-47); Hemoglobin 11.1 g/dL (12.0-15.0); Lymphocyte # 0.99 X10^3/ul (0.83-4.51); Lymphocyte % 26.5 % (19-41); Mean Corp Hgb Conc 30.7 g/dL (32-36); Mean Corpuscular Volume 97.6 fL (81-99); Monocyte# 0.58 X10^3/uL; Monocyte% 15.5 % (0-10); NRBC Flagged by Analyzer 0 % (0-5); Neutrophil # 2.03 X10^3/uL (2.7-7.7); Neutrophil % 54.2 % (47-70); Platelet Count 160 K/mm3 (150-450); RBC Distribution Width CV 13.5 % (11.6-14.6); RBC Distribution Width SD 48.5 fl (35.1-43.9); White Blood Count 3.7 K/mm3 (4.4-11.0)
[2024-02-12 08:37] LABS: Anion Gap 5 (5-15); BUN 21 mg/dL (7-18); BUN/Creat Ratio 26.3 RATIO (10-20); Calcium,Total 9.6 mg/dL (8.5-10.1); Chloride 108 mmol/L (98-107); EST Glomerular Filtration Rate 73 mL/min (>60); Est Glom Filt Rate - Afr Amer 88 mL/min (>60); Glucose 93 mg/dL (74-106); Potassium 4.2 mmol/L (3.5-5.1); Sodium Level 141 mmol/L (136-145)
== END ==
LOC: OLS.WHLCAR 05:00
PROVIDERS: PCP Internal Medicine; Visit Provider Internal Medicine
DX: G30.9 Alzheimer's disease, unspecified (principal); I10 Essential (primary) hypertension; F41.9 Anxiety disorder, unspecified
CPT/HCPCS: 36415; 80048; 85025

== ENCOUNTER → 2024-02-19 | Outpatient (REF) | payer MEDICARE, MEDICAID, SELFPAY ==
[2024-02-19 08:25] LABS: Hematocrit 36.5 % (37-47); Hemoglobin 11.5 g/dL (12.0-15.0); Mean Corp Hgb Conc 31.5 g/dL (32-36); Mean Corpuscular Hgb 30.9 pg (27.0-32.0); Mean Corpuscular Volume 98.1 fL (81-99); Mean Platelet Vol. 10.1 fl (6.2-12.0); Platelet Count 173 K/mm3 (150-450); RBC Distribution Width CV 13.7 % (11.6-14.6); RBC Distribution Width SD 49.5 fl (35.1-43.9); Red Blood Count 3.72 M/mm3 (4.2-5.4); White Blood Count 3.4 K/mm3 (4.4-11.0)
[2024-02-19 08:40] LABS: Valproic Acid (Depakene) Level 31 ug/mL (50-100)
[2024-02-19 09:11] LABS: ALB/GLOB Ratio 0.8 RATIO (0.9-2.4); AST(SGOT) 19 U/L (15-37); Alanine Aminotransfer ALT/SGPT 21 U/L (13-56); Albumin, Serum 2.7 g/dL (3.2-5.0); Alkaline Phosphatase 55 U/L (45-117); Anion Gap 4 (5-15); BUN 21 mg/dL (7-18); BUN/Creat Ratio 29.1 RATIO (10-20); Calcium,Total 8.9 mg/dL (8.5-10.1); Chloride 112 mmol/L (98-107); Creatinine, Serum 0.72 mg/dL (0.55-1.02); EST Glomerular Filtration Rate 82 mL/min (>60); Est Glom Filt Rate - Afr Amer 99 mL/min (>60); Globulin 3.6 g/dL (2.2-4.2); Glucose 90 mg/dL (74-106); Potassium 4.4 mmol/L (3.5-5.1); Protein, Total 6.3 g/dL (6.4-8.2); Sodium Level 143 mmol/L (136-145)
== END ==
LOC: OLS.WHLCAR 05:00
PROVIDERS: PCP Internal Medicine; Visit Provider Internal Medicine
DX: F03.918 Unspecified dementia, unspecified severity, with other behavioral disturbance (principal); I10 Essential (primary) hypertension; F41.9 Anxiety disorder, unspecified; R45.1 Restlessness and agitation
CPT/HCPCS: 36415; 80053; 80164; 85027

== ENCOUNTER → 2024-03-24 | Outpatient (REF) | payer MEDICARE, MEDICAID, SELFPAY ==
[2024-03-24 08:20] LABS: Absolute Lymphocyte Count 0.97 X10^3/uL (0.83-4.51); Basophil# 0.01 X10^3/uL; Basophil% 0.3 % (0-1); Eosinophil# 0.15 X10^3/uL; Eosinophils% 4.1 % (0-5); Hematocrit 37.6 % (37-47); Hemoglobin 11.8 g/dL (12.0-15.0); Lymphocyte # 0.97 X10^3/ul (0.83-4.51); Lymphocyte % 26.2 % (19-41); Mean Corp Hgb Conc 31.4 g/dL (32-36); Mean Corpuscular Hgb 30.6 pg (27.0-32.0); Mean Corpuscular Volume 97.4 fL (81-99); Mean Platelet Vol. 9.7 fl (6.2-12.0); Monocyte# 0.52 X10^3/uL; Monocyte% 14.1 % (0-10); NRBC Flagged by Analyzer 0 % (0-5); Neutrophil # 2.04 X10^3/uL (2.7-7.7); Platelet Count 186 K/mm3 (150-450); RBC Distribution Width CV 13.4 % (11.6-14.6); RBC Distribution Width SD 48.1 fl (35.1-43.9); Red Blood Count 3.86 M/mm3 (4.2-5.4); White Blood Count 3.7 K/mm3 (4.4-11.0)
[2024-03-24 08:49] LABS: ALB/GLOB Ratio 0.7 RATIO (0.9-2.4); AST(SGOT) 21 U/L (15-37); Alanine Aminotransfer ALT/SGPT 29 U/L (13-56); Albumin, Serum 2.9 g/dL (3.2-5.0); Alkaline Phosphatase 62 U/L (45-117); Anion Gap 5 (5-15); BUN 22 mg/dL (7-18); Calcium,Total 9.4 mg/dL (8.5-10.1); Chloride 108 mmol/L (98-107); Creatinine, Serum 0.85 mg/dL (0.55-1.02); EST Glomerular Filtration Rate 68 mL/min (>60); Est Glom Filt Rate - Afr Amer 83 mL/min (>60); Globulin 3.9 g/dL (2.2-4.2); Glucose 88 mg/dL (74-106); Potassium 3.9 mmol/L (3.5-5.1); Protein, Total 6.8 g/dL (6.4-8.2); Sodium Level 142 mmol/L (136-145)
[2024-03-24 08:51] LABS: Valproic Acid (Depakene) Level 39 ug/mL (50-100)
== END ==
LOC: OLS.WHLCAR 04:00
PROVIDERS: PCP Internal Medicine; Visit Provider Internal Medicine
DX: E78.2 Mixed hyperlipidemia (principal)
CPT/HCPCS: 36415; 80053; 80164; 85025

== ENCOUNTER → 2024-04-04 | Outpatient (REF) | payer MEDICARE, MEDICAID, SELFPAY ==
[2024-04-04 08:03] LABS: Valproic Acid (Depakene) Level 33 ug/mL (50-100)
== END ==
LOC: OLS.WHLCAR 05:00
PROVIDERS: PCP Internal Medicine; Referring Provider Internal Medicine; Visit Provider Internal Medicine
DX: F03.918 Unspecified dementia, unspecified severity, with other behavioral disturbance (principal)
CPT/HCPCS: 36415; 80164

== ENCOUNTER 2024-06-02 13:53 | Emergency (ER) | payer MEDICARE, MEDICAID, SELFPAY ==
[2024-06-02 13:56] VITALS: BP 148/113; PULSE 102; RESP 16; TEMP 36; O2SAT 92; BMI 38.6
--- NOTE | 2024-06-02 14:20 | ED.VIS.FALL ---
HPI HPI - Fall History of Present Illness Chief Complaint: Fall PFSH PFS Medical History Coronary artery disease Dementia Depression HLD (hyperlipidemia) Hypertension Home Medications ?Medication ?Instructions ?Recorded ?Last Taken ?Type amlodipine 10 mg tablet 10 mg PO DAILY 08/25/22 Unknown History multivitamin 1 tab PO DAILY 08/25/22 Unknown History lorazepam 0.5 mg tablet 0.5 mg PO Q6H PRN anxiety #28 tabs 09/08/22 Unknown Rx cephalexin 500 mg capsule 500 mg PO Q6 10 days #40 CAPSULES 03/04/23 Unknown Rx Allergy/AdvReac Type Severity Reaction Status Date / Time No Known Allergies Allergy Verified 08/25/22 16:01 Social History household members: none Smoking Status: Former smoker alcohol intake: current alcohol intake frequency: other substance use type: does not use EXAM Physical Exam Const Vital Signs: 06/02/24 13:56 Temperature 96.8 F L Temperature Source Tympanic Pulse Rate 102 H Respiratory Rate 16 Blood Pressure 148/113 H Blood Pressure Mean 124 Pulse Ox 92 Oxygen Delivery Method Room Air MDM MDM MDM Narrative Medical decision making narrative: HISTORY OF PRESENT ILLNESS: 84-year-old female presents with unwitnessed fall from approximate 2 days ago complaint of bilateral shoulder pain and rib pain. She is from [facility]. She is DNR CC. The patient does not complain of any specific complaints. REVIEW OF SYSTEMS: Unable to obtain reliable review of systems secondary to patient's baseline dementia PHYSICAL EXAM: Nursing triage notes reviewed, Vital signs reviewed Primary Survey Airway: Intact Breathing: Bilateral breath sounds Circulation: Palpable bilateral femorals, Palpable bilateral radial, Palpable bilateral DP and Palpable bilateral PT Disability / Spine precautions GCS Score: Eye Openin Verbal Response: 5 Motor Response: 6 Secondary Survey Constitutional: Please see MDM Head: Atraumatic, Midface stable, NO jaw malocclusion, No Cephalohematoma, and No Lacerations noted Eye: Pupils equal round and reactive to light, Extraocular muscles intact and No periorbital ecchymosis or stepoff, no evidence of entrapment ENT: Oropharynx clear, no lacerations, no hemotympanum, no raccoon eyes or rush sign Cervical spine / Neck: No cervical spine bony tenderness, crepitance, or stepoff deformity Trachea midline Lungs: Clear to auscultation, No asymmetric rise and No crepitus, no flail chest Cardiac: Regular rate and rhythm and No murmurs Abdomen: Soft, Nontender and No rebound Pelvis: Pelvis stable to compression : No evidence of genital injury Back: No midline bony tenderness to thoracic/lumbar/sacral spines Neuro: At baseline, intact strength and sensation in bilateral upper and lower extremities. 2+ patellar reflexes bilaterally. Extremities: NO gross Deformities Psych: Normal affect Nursing triage notes reviewed, Vital signs reviewed MEDICAL DECISION MAKING: Chief Complaint: Unwitnessed fall External records reviewed: No recent ED visits: Reviewed senior care paperwork Factors affecting care: Alzheimer's, dementia, Social determinants of health: none History obtained from others: none Consults: none MDM Narrative: Patient was initially hemodynamically stable, afebrile and nontoxic-appearing. Primary secondary trauma surveys did not reveal any obvious abnormality. I considered the following differential diagnosis: I attempted to call the patient's power of deputy prosecuting attorney her son Mr. Chang Pabon without an answer. Then called Aida Pabon as well. She answered. She agreed that interventions would not be warranted as the patient is DNR CC. Requested pain medication and discharge back to senior care The patient and/or family, caregivers express understanding. The patient and/or family, caregivers agrees with the plan. Shared decision making: I will have a discussion with the patient and or visitors regarding risk/benefits of further testing or admission. They will be made aware of of the risk/benefits inherent in this decision they will be given the opportunity to voice understanding. Total critical care time today provided was at least 0 minutes. This excludes separately billable procedures. Critical care time (if documented) is secondary to the patient having high probability of clinically significant/life threatening deterioration in the patient's condition which required my urgent intervention. Impression: 1. Fall 2. Elbow contusion Dispo: discharge This note was generated with [employer] dictation software. It may contain incorrect words, spelling, and punctuation that were not noted in review of the chart prior to signing. Discharge Plan Triage Chief Complaint: Fall ED Provider: Christiano Gee Dx/Rx/DC Orders Clinical Impression: Fall with injury, Contusion of elbow Prescriptions: No Action multivitamin Tablet 1 tab PO DAILY amlodipine 10 mg tablet 10 mg PO DAILY Patient Comments: Take 1 tablet by mouth once daily. cephalexin 500 mg capsule 500 mg PO Q6 10 Days Qty: 40 0RF lorazepam 0.5 mg tablet 0.5 mg PO Q6H PRN (Reason: anxiety) Qty: 28 0RF Primary Care Provider: Liz Hoover Referrals: Liz Hoover MD [Primary Care Provider] - Activity Restrictions/Additional Instructions: Thank you for trusting us with your care today! Please take Tylenol (2 pills, 650 mg), ibuprofen (2 pills, 400 mg) every 6 hours as needed for pain and fever control. Please return to the emergency department if your symptoms change or worsen. Please follow with your primary care physician for further outpatient evaluation and management. Print Language: Lithuanian Disposition Disposition: Home, Self Care
--- NOTE | 2024-06-02 15:03 | ED.RN ---
this rn called [facility] and gave report to patient nurse
[2024-06-02 15:54] VITALS: BP 141/78; PULSE 78; RESP 14; O2SAT 98
[2024-06-02] MEDS: LORazepam 2 MG/ML Syringe 1 MG IM (16:45)
--- NOTE | 2024-06-02 17:51 | ED.RN ---
Cindy AT [facility] UPDATED ON ATIVAN GIVEN AT 1644
== END 2024-06-02 17:52 | disposition home or self-care (01) ==
PROVIDERS: Emergency Provider Emergency Medicine; PCP Internal Medicine; Visit Provider Emergency Medicine
DX: S50.00XA Contusion of unspecified elbow, initial encounter (principal); F02.80 Dementia in other diseases classified elsewhere, unspecified severity, without behavioral disturbance, psychotic disturbance, mood disturbance, and anxiety; G30.9 Alzheimer's disease, unspecified; Z51.5 Encounter for palliative care; I10 Essential (primary) hypertension; E78.5 Hyperlipidemia, unspecified; I25.10 Atherosclerotic heart disease of native coronary artery without angina pectoris; Z87.891 Personal history of nicotine dependence; F32.A Depression, unspecified; W19.XXXA Unspecified fall, initial encounter
CPT/HCPCS: 96372; 99282

== ENCOUNTER → 2024-06-24 | Outpatient (REF) | payer MEDICARE, MEDICAID, SELFPAY ==
[2024-06-24 09:17] LABS: Absolute Lymphocyte Count 1.47 X10^3/uL (0.83-4.51); Absolute Neutrophil Count 2.6 X10^3/uL (2.0-7.7); Basophil# 0.01 X10^3/uL; Basophil% 0.2 % (0-1); Eosinophil# 0.13 X10^3/uL; Eosinophils% 2.8 % (0-5); Hemoglobin 12.8 g/dL (12.0-15.0); Lymphocyte # 1.47 X10^3/ul (0.83-4.51); Lymphocyte % 31.1 % (19-41); Mean Corp Hgb Conc 31.2 g/dL (32-36); Mean Corpuscular Hgb 30.4 pg (27.0-32.0); Mean Corpuscular Volume 97.4 fL (81-99); Mean Platelet Vol. 10.1 fl (6.2-12.0); Monocyte# 0.47 X10^3/uL; NRBC Flagged by Analyzer 0 % (0-5); Neutrophil # 2.63 X10^3/uL (2.7-7.7); Neutrophil % 55.7 % (47-70); Platelet Count 204 K/mm3 (150-450); RBC Distribution Width CV 13.5 % (11.6-14.6); RBC Distribution Width SD 48.6 fl (35.1-43.9); Red Blood Count 4.21 M/mm3 (4.2-5.4); White Blood Count 4.7 K/mm3 (4.4-11.0)
[2024-06-24 09:31] LABS: Valproic Acid (Depakene) Level 17 ug/mL (50-100)
[2024-06-24 09:37] LABS: ALB/GLOB Ratio 0.7 RATIO (0.9-2.4); AST(SGOT) 33 U/L (15-37); Alanine Aminotransfer ALT/SGPT 33 U/L (13-56); Alkaline Phosphatase 126 U/L (45-117); Anion Gap 6 (5-15); BUN 17 mg/dL (7-18); BUN/Creat Ratio 22.3 RATIO (10-20); Calcium,Total 9.7 mg/dL (8.5-10.1); Chloride 110 mmol/L (98-107); Creatinine, Serum 0.76 mg/dL (0.55-1.02); EST Glomerular Filtration Rate 77 mL/min (>60); Est Glom Filt Rate - Afr Amer 93 mL/min (>60); Globulin 4.1 g/dL (2.2-4.2); Glucose 81 mg/dL (74-106); Protein, Total 7.1 g/dL (6.4-8.2); Sodium Level 143 mmol/L (136-145)
== END ==
LOC: OLS.WHLCAR 05:00
PROVIDERS: PCP Internal Medicine; Visit Provider Internal Medicine
DX: E78.2 Mixed hyperlipidemia (principal); G30.9 Alzheimer's disease, unspecified; I10 Essential (primary) hypertension; F03.918 Unspecified dementia, unspecified severity, with other behavioral disturbance; R45.1 Restlessness and agitation; R01.1 Cardiac murmur, unspecified
CPT/HCPCS: 36415; 80053; 80164; 85025